=== PATIENT | female | born 1955 | race Caucasian/White ===

== ENCOUNTER → 2016-11-23 | Outpatient (CLI) | payer OTHER ==
[~2016-11-23] MED LIST: ADV250INH INH; ALBU17IN INH; ALEV220C2 PO; LEVO88TA3 PO; PARO20TA2 PO; PRAV20TA2 PO; PROBCAP4 PO; TUDO1AER2 INH; VITA100037 PO
--- NOTE | 2016-11-23 15:05 | REPMRS ---
Patient History The patient states she had a clinical breast exam in Patient is postmenopausal. Family history of breast cancer in paternal grandmother at age 50 or over. Benign excisional biopsy of the left breast, 1984. Digital Woman Screen Mammo: November 23, 2016 - Exam #: [id number] Bilateral CC and MLO view(s) were taken. Technologist: Cheri Do, Technologist Prior study comparison: October 24, 2013, digital woman screen mammo performed at [facility]. July 31, 2012, digital woman screen mammo performed at [facility]. FINDINGS: There are scattered fibroglandular densities. There has been no change in the appearance of the mammogram from the prior studies. There is a mild amount of residual fibroglandular tissue which is fairly symmetric. There is no interval development of dominant mass, architectural distortion, or clustered microcalcification suggestive of malignancy. ASSESSMENT: BI-RADS/ACR category 1 mammogram. Negative. Recommendation Routine screening mammogram in 1 year (for women over age 40). This mammogram was interpreted with the aid of an FDA-approved computer-aided dectection system. Electronically Signed By: Reyes Velasquez MD 11/23/16 1530
== END ==
LOC: M WHC 12:58
PROVIDERS: ATTEND Nurse Practitioner Women's Health
DX: Z12.31 Encounter for screening mammogram for malignant neoplasm of breast (principal); R14.0 Abdominal distension (gaseous); Z78.0 Asymptomatic menopausal state; Z80.3 Family history of malignant neoplasm of breast

== ENCOUNTER → 2016-11-23 | Outpatient (REF) | payer OTHER | LOC: M SFHCWAGY 13:17 | PROVIDERS: ATTEND Nurse Practitioner Women's Health | DX: Z01.419 Encounter for gynecological examination (general) (routine) without abnormal findings (principal); Z11.51 Encounter for screening for human papillomavirus (HPV) ==

== ENCOUNTER → 2016-11-30 | Outpatient (CLI) | payer OTHER ==
--- NOTE | 2016-11-30 10:35 | REP ---
Clinical: Pelvic pain and bloating . Technique: Transabdominal pelvic ultrasound followed by transvaginal examination for better evaluation of the endometrium and adnexa. Findings: Bladder is unremarkable and measures 10.5 x 9.1 x 5.0 cm . Anteverted uterus is deviated to the left hemipelvis and measures 7.3 x 2.4 x 4.6 cm with 2.1 cm anterior submucosal fibroid having mass effect on the endometrium. The endometrial complex measures 6.2 mm thickness. Subcentimeter Nabothian cysts noted in the lower uterine segment. Bilateral ovaries are normal in appearance and vascularity without evidence for torsion. Right ovary measures 1.4 x 1.0 x 1.4 cm. Left ovary measures 1.9 x 1.0 x 1.5 cm. No pelvic fluid or adnexal mass lesion. Impression: 1. A 2.1 centimeter anterior submucosal fibroid.
== END ==
LOC: M WHC 09:44
PROVIDERS: ATTEND Nurse Practitioner Women's Health
DX: R14.0 Abdominal distension (gaseous) (principal)

== ENCOUNTER → 2017-01-11 | Outpatient (REF) | payer OTHER ==
[~2017-01-11] MED LIST changes: -PARO20TA2 PO; +PARO20TA3 PO
== END ==
LOC: M LAB REF 12:35
PROVIDERS: ATTEND Physician Assistant
DX: J02.9 Acute pharyngitis, unspecified (principal)

== ENCOUNTER 2018-01-01 22:56 | Inpatient (IN) | payer OTHER, MEDICAID ==
[2018-01-02] MEDS: ONDANSETRON 4MG/2ML VIAL (J2405) IV (01:15)
[2018-01-02] MEDS: MORPHINE 4 MG/ML 1ML VIAL/SYRINGE (J2270) IV ×2 (01:20→02:00)
[2018-01-02 01:32] LABS: BASO # 0.1 10^3/uL (0.0-0.2); BASO % 0.2 % (0.0-1.0); HEMATOCRIT 42.6 % (36.0-47.0); HEMOGLOBIN 14.4 g/dl (12.0-15.5); IMMATURE GRANULOCYTE % 0.9 % (0-3.0); LYMPH # 1.4 10^3/uL (1.5-4.5); LYMPH % 6.5 % (24.0-44.0); MEAN CORPUSCULAR HEMOGLOBIN 29.6 pg (27.0-33.0); MEAN CORPUSCULAR HGB CONC 33.8 g/dl (32.0-36.5); MEAN CORPUSCULAR VOLUME 87.7 fl (80.0-96.0); MONO # 1.1 10^3/uL (0.0-0.8); MONO % 5.2 % (0.0-5.0); NEUTROPHILS % 87.2 % (36.0-66.0); PLATELET COUNT, AUTOMATED 181 10^3/uL (150-450); RED BLOOD COUNT 4.86 10^6/uL (4.00-5.40); RED CELL DISTRIBUTION WIDTH 13.5 % (11.5-14.5); WHITE BLOOD COUNT 21.8 10^3/uL (4.0-10.0)
[2018-01-02 01:35] LABS: KETONE, URINE AUTO RFX NEGATIVE (NEGATIVE); LEUKOCYTE ESTERASE UR AUTO RFX TRACE (NEGATIVE); MUCUS, URINE RFX SMALL (NEGATIVE); NITRITE, URINE AUTO RFX NEGATIVE (NEGATIVE); RBC, URINE AUTO RFX 8 /HPF (0-3); SPECIFIC GRAVITY UR AUTO RFX 1.031 (1.002-1.035); SQUAM EPITHELIAL CELL UR AURFX 2 /HPF (0-6); WBC, URINE AUTO RFX 6 /HPF (0-3)
[2018-01-02 01:59] LABS: ALBUMIN 3.4 GM/DL (3.2-5.2); ALBUMIN/GLOBULIN RATIO 0.97 (1.00-1.93); ALKALINE PHOSPHATASE 96 U/L (45-117); ALT/SGPT 19 U/L (12-78); ANION GAP 7 MEQ/L (8-16); AST/SGOT 15 U/L (7-37); BILIRUBIN,DIRECT 0.2 MG/DL (0.0-0.2); BILIRUBIN,TOTAL 0.6 MG/DL (0.2-1.0); BLOOD UREA NITROGEN 17 MG/DL (7-18); CALCIUM LEVEL 8.1 MG/DL (8.8-10.2); CARBON DIOXIDE LEVEL 28 MEQ/L (21-32); CHLORIDE LEVEL 104 MEQ/L (98-107); CK-MB VALUE MASS < 1.0 NG/ML (<3.6); CPK CREATINE PHOSPHOKINASE 78 U/L (26-192); CREATININE FOR GFR 0.93 MG/DL (0.55-1.30); GLOMERULAR FILTRATION RATE > 60.0 (>45); GLUCOSE, FASTING 137 MG/DL (70-100); LIPASE 148 U/L (73-393); MB/CK RELATIVE INDEX 1.28 (< OR =4); POTASSIUM SERUM 3.6 MEQ/L (3.5-5.1); SODIUM LEVEL 139 MEQ/L (136-145); TOTAL PROTEIN 6.9 GM/DL (6.4-8.2); TROPONIN I < 0.02 NG/ML (< 0.10)
[2018-01-02] MEDS ORDERED: ISOVUE-370 76% 100ML VIAL (Q9967) As Ordered (02:13)
[2018-01-02] MEDS: HYDROmorphone HCL 1 MG/ML SYRINGE (J1170) IV ×3 (03:02→07:17)
[2018-01-02] MEDS ORDERED: FLUTICASONE PROP 0.05% NASAL SPRAY 16 GM (FLONASE) (04:30)
[2018-01-02] MEDS: LevoFLOXacin IV 750 MG in APPROPRIATE DILUENT 1 EA IV (04:47)
[2018-01-02] MEDS ORDERED: NICOTINE POLACRILEX 2 MG GUM PO (05:45)
[2018-01-02] MEDS: HEPARIN SOD (PORCINE) 5000 UNITS/ML VIAL SC ×3 (06:39→21:13)
[2018-01-02] MEDS: LEVOTHYROXINE 88MCG TABLET (0.088 MG) PO (06:39)
[2018-01-02] MEDS: NS 1,000 ML IV ×2 (06:39→17:36)
[2018-01-02] MEDS: cefTRIAXone SOD 1 GM in D5W MINI-BAG PLUS 50 ML IV (06:40)
[2018-01-02] MEDS: ACETAMINOPHEN 650MG ER TAB (TYLENOL ARTHRITIS) PO (06:56)
[2018-01-02] MEDS: AZITHROMYCIN INJ 500 MG, VIAL MATE ADAPTER 1 EACH in D5W 250 ML IV (07:16)
[2018-01-02] MEDS: PARoxetine 10MG TABLET PO (09:03)
[2018-01-02] MEDS: ASPIRIN 81 MG ENTERIC TAB PO (09:03)
[2018-01-02] MEDS: PERCOCET 5MG/325MG TAB PO ×2 (11:28→17:36)
[2018-01-02] MEDS: ALBUTEROL SULFATE 2.5 MG/0.5 ML INH NEB SOLN INH (18:24)
[2018-01-02] MEDS: SYMBICORT 160/4.5MCG INHALER 6GM INH (20:17)
[2018-01-02] MEDS: ATORVASTATIN 20 MG TAB PO (21:13)
[2018-01-03] MEDS: NS 1,000 ML IV ×2 (00:25→10:25)
[2018-01-03] MEDS: cefTRIAXone SOD 1 GM in D5W MINI-BAG PLUS 50 ML IV (04:11)
[2018-01-03] MEDS: PERCOCET 5MG/325MG TAB PO ×2 (04:12→15:12)
[2018-01-03] MEDS: LEVOTHYROXINE 88MCG TABLET (0.088 MG) PO (05:48)
[2018-01-03] MEDS: AZITHROMYCIN INJ 500 MG, VIAL MATE ADAPTER 1 EACH in D5W 250 ML IV (05:49)
[2018-01-03] MEDS: HEPARIN SOD (PORCINE) 5000 UNITS/ML VIAL SC ×3 (05:49→21:30)
[2018-01-03 06:18] LABS: BASO % 0.2 % (0.0-1.0); EOS # 0.1 10^3/uL (0.0-0.50); EOS % 0.6 % (0.0-3.0); HEMATOCRIT 35.3 % (36.0-47.0); IMMATURE GRANULOCYTE % 1.1 % (0-3.0); LYMPH # 1.2 10^3/uL (1.5-4.5); LYMPH % 9.2 % (24.0-44.0); MEAN CORPUSCULAR HEMOGLOBIN 29.7 pg (27.0-33.0); MEAN CORPUSCULAR HGB CONC 33.4 g/dl (32.0-36.5); MEAN CORPUSCULAR VOLUME 88.9 fl (80.0-96.0); MONO # 0.7 10^3/uL (0.0-0.8); MONO % 5.6 % (0.0-5.0); NEUTROPHILS # 10.9 10^3/uL (1.8-7.7); NEUTROPHILS % 83.3 % (36.0-66.0); PLATELET COUNT, AUTOMATED 156 10^3/uL (150-450); RED BLOOD COUNT 3.97 10^6/uL (4.00-5.40); RED CELL DISTRIBUTION WIDTH 13.5 % (11.5-14.5); WHITE BLOOD COUNT 13.1 10^3/uL (4.0-10.0)
[2018-01-03 06:23] LABS: HEMOGLOBIN 11.8 g/dl (12.0-15.5)
[2018-01-03 06:47] LABS: ALBUMIN 2.5 GM/DL (3.2-5.2); ALBUMIN/GLOBULIN RATIO 0.64 (1.00-1.93); ALKALINE PHOSPHATASE 83 U/L (45-117); ALT/SGPT 11 U/L (12-78); ANION GAP 6 MEQ/L (8-16); AST/SGOT 9 U/L (7-37); BILIRUBIN,TOTAL 0.2 MG/DL (0.2-1.0); BLOOD UREA NITROGEN 17 MG/DL (7-18); CALCIUM LEVEL 7.3 MG/DL (8.8-10.2); CARBON DIOXIDE LEVEL 26 MEQ/L (21-32); CHLORIDE LEVEL 107 MEQ/L (98-107); CREATININE FOR GFR 0.89 MG/DL (0.55-1.30); GLOMERULAR FILTRATION RATE > 60.0 (>45); GLUCOSE, FASTING 166 MG/DL (70-100); POTASSIUM SERUM 3.7 MEQ/L (3.5-5.1); SODIUM LEVEL 139 MEQ/L (136-145); TOTAL PROTEIN 6.4 GM/DL (6.4-8.2)
[2018-01-03] MEDS: TIOTROPIUM INHALER/CAPSULE (SPIRIVA) INH (08:24)
[2018-01-03] MEDS: SYMBICORT 160/4.5MCG INHALER 6GM INH ×2 (08:24→21:49)
[2018-01-03] MEDS ORDERED: ISOVUE-370 76% 100ML VIAL (Q9967) As Ordered (08:54)
[2018-01-03] MEDS: ASPIRIN 81 MG ENTERIC TAB PO (09:23)
[2018-01-03] MEDS: PARoxetine 10MG TABLET PO (09:23)
[2018-01-03] MEDS: BISACODYL 5 MG TAB PO (15:07)
[2018-01-03] MEDS: ATORVASTATIN 20 MG TAB PO (21:30)
[2018-01-04] MEDS: PERCOCET 5MG/325MG TAB PO ×4 (01:32→21:58)
[2018-01-04] MEDS: NS 1,000 ML IV ×2 (03:22→15:22)
[2018-01-04] MEDS: HEPARIN SOD (PORCINE) 5000 UNITS/ML VIAL SC ×3 (05:59→20:08)
[2018-01-04] MEDS: cefTRIAXone SOD 1 GM in D5W MINI-BAG PLUS 50 ML IV (05:59)
[2018-01-04] MEDS: LEVOTHYROXINE 88MCG TABLET (0.088 MG) PO (05:59)
[2018-01-04 06:22] LABS: BASO % 0.4 % (0.0-1.0); EOS # 0.1 10^3/uL (0.0-0.50); EOS % 1.6 % (0.0-3.0); HEMOGLOBIN 10.9 g/dl (12.0-15.5); IMMATURE GRANULOCYTE % 0.6 % (0-3.0); LYMPH # 1.3 10^3/uL (1.5-4.5); LYMPH % 16.9 % (24.0-44.0); MEAN CORPUSCULAR HEMOGLOBIN 29.9 pg (27.0-33.0); MEAN CORPUSCULAR VOLUME 90.4 fl (80.0-96.0); MONO # 0.6 10^3/uL (0.0-0.8); MONO % 7.3 % (0.0-5.0); NEUTROPHILS # 5.7 10^3/uL (1.8-7.7); NEUTROPHILS % 73.2 % (36.0-66.0); PLATELET COUNT, AUTOMATED 187 10^3/uL (150-450); RED BLOOD COUNT 3.65 10^6/uL (4.00-5.40); RED CELL DISTRIBUTION WIDTH 13.8 % (11.5-14.5); WHITE BLOOD COUNT 7.7 10^3/uL (4.0-10.0)
[2018-01-04 06:31] LABS: ALBUMIN 2.3 GM/DL (3.2-5.2); ALBUMIN/GLOBULIN RATIO 0.62 (1.00-1.93); ALKALINE PHOSPHATASE 78 U/L (45-117); ALT/SGPT 18 U/L (12-78); ANION GAP 4 MEQ/L (8-16); AST/SGOT 13 U/L (7-37); BILIRUBIN,TOTAL 0.2 MG/DL (0.2-1.0); BLOOD UREA NITROGEN 11 MG/DL (7-18); CALCIUM LEVEL 7.3 MG/DL (8.8-10.2); CARBON DIOXIDE LEVEL 27 MEQ/L (21-32); CHLORIDE LEVEL 113 MEQ/L (98-107); CREATININE FOR GFR 0.74 MG/DL (0.55-1.30); GLOMERULAR FILTRATION RATE > 60.0 (>45); GLUCOSE, FASTING 111 MG/DL (70-100); POTASSIUM SERUM 3.6 MEQ/L (3.5-5.1); SODIUM LEVEL 144 MEQ/L (136-145)
[2018-01-04] MEDS: AZITHROMYCIN INJ 500 MG, VIAL MATE ADAPTER 1 EACH in D5W 250 ML IV (06:42)
[2018-01-04] MEDS: SYMBICORT 160/4.5MCG INHALER 6GM INH ×2 (08:57→20:20)
[2018-01-04] MEDS: TIOTROPIUM INHALER/CAPSULE (SPIRIVA) INH (08:57)
[2018-01-04] MEDS: PARoxetine 10MG TABLET PO (08:59)
[2018-01-04] MEDS: ASPIRIN 81 MG ENTERIC TAB PO (08:59)
[2018-01-04] MEDS: BISACODYL 5 MG TAB PO (15:24)
[2018-01-04] MEDS: ATORVASTATIN 20 MG TAB PO (20:08)
[2018-01-04] MEDS ORDERED: MOM 30ML SUSPENSION UDC PO (22:45)
[2018-01-04] MEDS: MOM 30ML SUSPENSION UDC PO (22:52)
[2018-01-05] MEDS: NS 1,000 ML IV ×2 (00:42→02:25)
[2018-01-05] MEDS: LEVOTHYROXINE 88MCG TABLET (0.088 MG) PO (05:27)
[2018-01-05] MEDS: MOXIFLOXACIN 400 MG TAB PO (05:27)
[2018-01-05] MEDS: HEPARIN SOD (PORCINE) 5000 UNITS/ML VIAL SC (05:29)
[2018-01-05 05:53] LABS: BASO % 0.6 % (0.0-1.0); EOS # 0.2 10^3/uL (0.0-0.50); EOS % 2.2 % (0.0-3.0); HEMATOCRIT 36.5 % (36.0-47.0); IMMATURE GRANULOCYTE % 0.8 % (0-3.0); LYMPH # 1.5 10^3/uL (1.5-4.5); MEAN CORPUSCULAR HEMOGLOBIN 29.4 pg (27.0-33.0); MEAN CORPUSCULAR HGB CONC 32.9 g/dl (32.0-36.5); MEAN CORPUSCULAR VOLUME 89.5 fl (80.0-96.0); MONO # 0.6 10^3/uL (0.0-0.8); MONO % 8.1 % (0.0-5.0); NEUTROPHILS # 4.8 10^3/uL (1.8-7.7); NEUTROPHILS % 67.3 % (36.0-66.0); PLATELET COUNT, AUTOMATED 239 10^3/uL (150-450); RED BLOOD COUNT 4.08 10^6/uL (4.00-5.40); RED CELL DISTRIBUTION WIDTH 13.9 % (11.5-14.5); WHITE BLOOD COUNT 7.1 10^3/uL (4.0-10.0)
[2018-01-05 06:27] LABS: ALBUMIN 2.6 GM/DL (3.2-5.2); ALBUMIN/GLOBULIN RATIO 0.62 (1.00-1.93); ALKALINE PHOSPHATASE 98 U/L (45-117); ALT/SGPT 26 U/L (12-78); ANION GAP 7 MEQ/L (8-16); AST/SGOT 18 U/L (7-37); BILIRUBIN,TOTAL 0.2 MG/DL (0.2-1.0); BLOOD UREA NITROGEN 7 MG/DL (7-18); CALCIUM LEVEL 7.7 MG/DL (8.8-10.2); CARBON DIOXIDE LEVEL 27 MEQ/L (21-32); CHLORIDE LEVEL 111 MEQ/L (98-107); CREATININE FOR GFR 0.72 MG/DL (0.55-1.30); GLOMERULAR FILTRATION RATE > 60.0 (>45); GLUCOSE, FASTING 94 MG/DL (70-100); POTASSIUM SERUM 3.9 MEQ/L (3.5-5.1); SODIUM LEVEL 145 MEQ/L (136-145); TOTAL PROTEIN 6.8 GM/DL (6.4-8.2)
[2018-01-05] MEDS: TIOTROPIUM INHALER/CAPSULE (SPIRIVA) INH (07:18)
[2018-01-05] MEDS: SYMBICORT 160/4.5MCG INHALER 6GM INH (07:18)
[2018-01-05] MEDS: ASPIRIN 81 MG ENTERIC TAB PO (08:32)
[2018-01-05] MEDS: PARoxetine 10MG TABLET PO (08:32)
== END 2018-01-05 09:37 | disposition home or self-care (01) | DRG 720 ==
LOC: M ED 22:56 → M ED INP 01-02 04:25 → M MSPAV 01-02 05:22
DX: A41.9 Sepsis, unspecified organism (principal); J18.9 Pneumonia, unspecified organism; J44.0 Chronic obstructive pulmonary disease with (acute) lower respiratory infection; F17.210 Nicotine dependence, cigarettes, uncomplicated; I10 Essential (primary) hypertension; E03.9 Hypothyroidism, unspecified; F32.9 Major depressive disorder, single episode, unspecified; Z79.82 Long term (current) use of aspirin; Z79.899 Other long term (current) drug therapy; Z88.2 Allergy status to sulfonamides

== ENCOUNTER → 2018-02-14 | Outpatient (CLI) | payer OTHER | LOC: M WHC 11:04 | DX: Z12.31 Encounter for screening mammogram for malignant neoplasm of breast (principal) | CPT/HCPCS: 77067 ==

== ENCOUNTER → 2018-02-14 | Outpatient (REF) | payer OTHER ==
[2018-02-16 14:14] LABS: HPV HYBRID CAPTURE II Positive (Negative)
== END ==
LOC: M SFHCWAGY 11:12
DX: Z12.4 Encounter for screening for malignant neoplasm of cervix (principal)

== ENCOUNTER → 2018-02-26 | Outpatient (CLI) | payer OTHER | LOC: M WUC 12:12 | DX: J44.0 Chronic obstructive pulmonary disease with (acute) lower respiratory infection (principal) | CPT/HCPCS: 71046 ==

== ENCOUNTER → 2018-04-02 | Outpatient (REF) | payer OTHER | LOC: M SFHCWAGY 11:35 | DX: R87.810 Cervical high risk human papillomavirus (HPV) DNA test positive (principal); R87.612 Low grade squamous intraepithelial lesion on cytologic smear of cervix (LGSIL) ==

== ENCOUNTER → 2018-07-16 | Outpatient (CLI) | payer OTHER | LOC: M WUC 10:35 | DX: R05 Cough (principal) | CPT/HCPCS: 71046 ==

== ENCOUNTER → 2018-10-11 | Outpatient (REF) | payer OTHER ==
[~2018-10-11] MED LIST changes: +ALBU83IN; +ALBU83IN INH; +ALEV220T26 PO; +ASPI81TAEC PO; +ATOR80TA59; +ATOR80TA59 PO; +BREO1INH; +BREO1INH INH; +FLON1SPR; +FLUTISP; +HYDR25TAB PO; +INCR1INH INH; +LEVA750T7 PO; +OXYC1TAB23 PO; +PARO10TA3 PO; +TYLE650T35 PO; -VITA100037 PO; +VITA100067 PO
[2018-10-13 15:39] LABS: HPV HYBRID CAPTURE II Positive (Negative)
== END ==
LOC: M SFHCWAGY 13:27
PROVIDERS: ATTEND Nurse Practitioner Women's Health
DX: R87.810 Cervical high risk human papillomavirus (HPV) DNA test positive (principal); R87.612 Low grade squamous intraepithelial lesion on cytologic smear of cervix (LGSIL)

== ENCOUNTER → 2018-11-16 | Outpatient (REF) | payer OTHER | LOC: M SFHCWAGY 11:26 | PROVIDERS: ATTEND Family Medicine | DX: R87.619 Unspecified abnormal cytological findings in specimens from cervix uteri (principal) ==

== ENCOUNTER → 2019-01-08 | Outpatient (CLI) | payer OTHER ==
--- NOTE | 2019-01-08 11:09 | PFTRPT ---
Site: [facility], [address] [place], [place], [address] ID: [id number] Name: CARL GUNDERSNO Visit Date: 01/08/2019 Second ID: [id number] Referring Doctor: Afsaneh Holland Reviewing Doctor: Jeffrey Luna MD Spice Fumigator: Qiana WADDELL RRT Age: 63 : 1955 Sex: Female Race: Height: 62.00 Inches Weight: 177.00 Lbs BSA: 1.81 Order IDs: [id number] Requested Test(s): <RESP-PFT.DLCO> Diagnosis: J44.9 test appear to be valid, although the ATS standard for "end of test" was not met. IVC is less than 85% of VC. DLCO may be underestimated. Pt was given four puffs of albuterol for postbronchodilator. Review Status: Not Reviewed Pre-Bronch Post-Bronch Pred Actual %Pred Actual %Chng SPIROMETRY FVC (L) 2.95 1.59 53 1.62 1 FEV1 (L) 2.26 0.73 32 0.71 -2 FEV1/FVC (%) 77 46 59 44 -3 FEF 25% (L/sec) 4.67 0.69 14 0.62 -10 FEF 50% (L/sec) 3.51 0.29 8 0.27 -5 FEF 75% (L/sec) 1.12 0.14 12 0.15 9 FEF 25-75% (L/sec) 2.06 0.25 11 0.25 2 FEF Max (L/sec) 5.75 2.74 47 2.77 1 FIVC (L) 1.59 1.58 FIF 50% (L/sec) 3.44 3.54 102 2.96 -16 FIF Max (L/sec) 3.54 3.03 -14 MVV (L/min) 85 34 40 Expiratory Time (sec) 9.23 7.64 -17 Back Extrap Vol (L) 0.04 0.08 79 Time To FEFmax (sec) 0.063 0.081 27 LUNG VOLUMES SVC (L) 2.78 2.01 72 IC (L) 2.06 1.26 61 ERV (L) 0.72 0.74 103 TGV (L) 2.69 3.42 127 RV (Pleth) (L) 1.97 2.68 135 TLC (Pleth) (L) 4.75 4.68 98 RV/TLC (Pleth) (%) 41 57 139 DIFFUSION DLCOunc (ml/min/mmHg) 20.36 6.96 34 DLCOcor (ml/min/mmHg) 20.36 6.69 32 DL/VA (ml/min/mmHg/L) 4.29 2.52 58 VA (L) 4.75 2.66 55 BHT (sec) 11.51 IVC (L) 1.49 TLC (SB) (L) 2.81 AIRWAYS RESISTANCE Raw (cmH2O/L/s) 1.86 2.80 150 Gaw (L/s/cmH2O) 1.03 0.36 34 sRaw (cmH2O*s) 4.76 11.15 234 sGaw (1/cmH2O*s) 0.20 0.09 44 BLOOD GASES Hgb (gm/dL) 14.8
== END ==
LOC: M CARPUL 10:21
PROVIDERS: ATTEND Nurse Practitioner Adult Health
DX: J44.9 Chronic obstructive pulmonary disease, unspecified (principal)

== ENCOUNTER → 2019-01-10 | Outpatient (CLI) | payer OTHER ==
--- NOTE | 2019-01-11 04:49 | REP ---
Clinical: Lung screening. History of nicotine dependence. Comparison: 01/03/2018 Technique: Axial low-dose noncontrast images from the thoracic inlet to the upper abdomen using lung screening technique. Findings: The lung joe are well-aerated. Very minimal scattered scarring noted. No consolidation, significant nodule or mass lesion is appreciated. No pleural effusion/reaction or pneumothorax. Tracheobronchial tree is patent. Mediastinum demonstrates mild atherosclerotic changes of the coronary arteries without cardiomegaly. Impression: Lung-RADS category I. No nodule or suspicious abnormality. Management recommendations include annual low-dose CT evaluation. Electronically Signed by Carlos Cartagena MD 01/11/2019 04:41 A
== END ==
LOC: M RAD 10:36
PROVIDERS: ATTEND Nurse Practitioner Adult Health
DX: F17.218 Nicotine dependence, cigarettes, with other nicotine-induced disorders (principal)

== ENCOUNTER → 2019-03-12 | Outpatient (CLI) | payer OTHER ==
[~2019-03-12] MED LIST changes: -TUDO1AER2 INH; +TUDO1AER3 INH
--- NOTE | 2019-03-12 11:49 | REPMRS ---
Patient History The patient states she had a clinical breast exam in 03/2019. Patient is postmenopausal. Family history of breast cancer at age 50 or over in paternal grandmother, ovarian cancer at age 19 in sister. Benign excisional biopsy of the left breast, 1985. 3D TOMOSYNTHESIS WAS PERFORMED. The [facility] lifetime risk for breast cancer is 6.2%. Digital Woman Screen Mammo: March 12, 2019 - Exam #: [id number] Bilateral CC and MLO view(s) were taken. Technologist: Tricia Hoang Technologist Prior study comparison: February 14, 2018, bilateral digital woman screen mammo performed at [facility]. November 23, 2016, digital woman screen mammo performed at [facility]. FINDINGS: There are scattered fibroglandular densities. There has been no change in the appearance of the mammogram from the prior studies. There is a mild amount of residual fibroglandular tissue which is fairly symmetric. There is no interval development of dominant mass, architectural distortion, or clustered microcalcification suggestive of malignancy. Assessment: BI-RADS/ACR category 1 mammogram. Negative Mammogram. Recommendation Routine screening mammogram in 1 year (for women over age 40). This mammogram was interpreted with the aid of an FDA-approved computer-aided dectection system. Electronically Signed By: Reyes Velasquez MD 03/12/19 [id number]
== END ==
LOC: M WHC 10:49
PROVIDERS: ATTEND Nurse Practitioner Women's Health
DX: Z12.31 Encounter for screening mammogram for malignant neoplasm of breast (principal); Z78.0 Asymptomatic menopausal state; Z80.41 Family history of malignant neoplasm of ovary

== ENCOUNTER → 2019-07-23 | Outpatient (CLI) | payer OTHER ==
--- NOTE | 2019-07-23 22:04 | REP ---
CHEST, TWO VIEWS: Two views of the chest are performed. COMPARISON: 07/16/2018. There is bibasilar fibrotic change which is stable. No definite superimposed acute infiltrate is seen. The heart is normal in size and there is calcification of the thoracic aorta. The mediastinal silhouette is unchanged. There are degenerative changes of the spine. IMPRESSION: Stable chronic findings without evidence of superimposed acute infiltrate. Electronically Signed by Reyes Velasquez MD 07/24/2019 03:46 P
== END ==
LOC: M RAD 17:16
PROVIDERS: ATTEND Nurse Practitioner Adult Health
DX: J20.9 Acute bronchitis, unspecified (principal)

== ENCOUNTER 2019-09-11 17:56 | Emergency (ER) | payer OTHER ==
[~2019-09-11] VITALS: Ht 157.5 cm; Wt 82.5 kg
--- NOTE | 2019-09-11 18:58 | REP ---
CHEST, TWO VIEWS: Two views chest performed and compared to prior study of 07/23/2019. There is mild bibasilar fibrotic change with no acute infiltrate or pulmonary edema. Heart is normal in size. There is calcification of the thoracic aorta. The mediastinal silhouette is unchanged. Degenerative changes of the spine are again noted. IMPRESSION: Stable chronic findings without evidence of acute infiltrate. Electronically Signed by Reyes Velasquez MD 09/11/2019 08:07 P
[2019-09-11 19:06] LABS: INFLUENZA A AMPLIFICATION NEGATIVE (NEGATIVE); INFLUENZA B AMPLIFICATION NEGATIVE (NEGATIVE)
[2019-09-11] MEDS ORDERED: IBUP-1022 PO (20:24)
[2019-09-11 20:47] LABS: BASO % 0.3 % (0.0-1.0); EOS # 0.1 10^3/uL (0.0-0.5); HEMATOCRIT 43.6 % (36.0-47.0); HEMOGLOBIN 13.8 g/dl (12.0-15.5); LYMPH # 1.7 10^3/uL (1.5-5.0); LYMPH % 14.4 % (24.0-44.0); MEAN CORPUSCULAR HEMOGLOBIN 28.8 pg (27.0-33.0); MEAN CORPUSCULAR HGB CONC 31.7 g/dl (32.0-36.5); MONO # 0.9 10^3/uL (0.0-0.8); MONO % 7.8 % (0.0-5.0); NEUTROPHILS # 8.8 10^3/uL (1.5-8.5); NEUTROPHILS % 76.2 % (36.0-66.0); PLATELET COUNT, AUTOMATED 177 10^3/uL (150-450); RED BLOOD COUNT 4.79 10^6/uL (4.00-5.40); WHITE BLOOD COUNT 11.6 10^3/uL (4.0-10.0)
[2019-09-11 20:53] LABS: APPEARANCE, URINE CLEAR (CLEAR); BACTERIA, URINE AUTO NEGATIVE (NEGATIVE); BILIRUBIN, URINE AUTO NEGATIVE (NEGATIVE); BLOOD, URINE BLOOD NEGATIVE (NEGATIVE); COLOR, URINE YELLOW (YELLOW); GLUCOSE, URINE (UA) AUTO NEGATIVE (NEGATIVE); KETONE, URINE AUTO TRACE mg/dL (NEGATIVE); LEUKOCYTE ESTERASE, URINE AUTO NEGATIVE (NEGATIVE); MUCUS, URINE SMALL (NEGATIVE); NITRITE, URINE AUTO NEGATIVE (NEGATIVE); PROTEIN, URINE AUTO NEGATIVE (NEGATIVE); RBC, URINE AUTO 5 /HPF (0-3); SPECIFIC GRAVITY URINE AUTO 1.023 (1.002-1.035); SQUAMOUS EPITHELIAL CELL UR AU 0 /HPF (0-6); WBC, URINE AUTO 1 /HPF (0-3)
[2019-09-11 21:07] LABS: MONO SCRN NEGATIVE (NEGATIVE)
[2019-09-11] MEDS ORDERED: AZIT-12 PO (21:41)
[2019-09-11 21:44] VITALS: BP 116/56
[2019-09-11] MEDS ORDERED: AZITHROMYCIN 250 MG TAB PO ONE (21:45)
== END 2019-09-11 21:51 | disposition home or self-care (01) ==
LOC: M ED 17:56
DX: J01.00 Acute maxillary sinusitis, unspecified (principal); Z88.2 Allergy status to sulfonamides; Z79.899 Other long term (current) drug therapy

== ENCOUNTER → 2019-11-14 | Outpatient (REF) | payer OTHER ==
[~2019-11-14] MED LIST changes: +AZIT-12 PO; +IBUP-1022 PO
== END ==
LOC: M SFHCWAGY 13:36
PROVIDERS: ATTEND Nurse Practitioner Women's Health
DX: Z12.4 Encounter for screening for malignant neoplasm of cervix (principal)

== ENCOUNTER → 2020-03-10 | Outpatient (CLI) | payer MEDICARE, MEDICAID ==
[~2020-03-10] MED LIST changes: +ACET650T61 PO; -TYLE650T35 PO
--- NOTE | 2020-03-11 07:28 | REP ---
REASON: Tobacco abuse. COMPARISON: 01/03/2018 and 01/10/2019. Latest prior also CT screening exam. As per the protocol, only lung window images were sent to the read station for interpretation. No new abnormal nodules, masses, or opacities have developed. Grossly, the imaged upper abdomen and imaged osseous structures are unchanged. Grossly, the mediastinum and pulmonary chance are unchanged. IMPRESSION: Stable CT examination of the chest. Lung-RADS category 2. Year[address] screening recommended. Electronically Signed by Calderon Madison DO 03/11/2020 09:32 A
== END ==
LOC: M RAD 13:56
PROVIDERS: ATTEND Nurse Practitioner Adult Health
DX: F17.218 Nicotine dependence, cigarettes, with other nicotine-induced disorders (principal)

== ENCOUNTER 2020-09-04 12:02 | Inpatient (IN) | payer MEDICARE, MEDICAID ==
[~2020-09-04] VITALS: Ht 157.5 cm; Wt 77.3 kg
[2020-09-04] MEDS ORDERED: ACETAMINOPHEN 325 MG TAB PO ONE (12:30)
[2020-09-04 12:42] LABS: BASO % 0.3 % (0.0-1.0); HEMOGLOBIN 13.2 g/dl (12.0-15.5); LYMPH # 0.7 10^3/uL (1.5-5.0); LYMPH % 19.2 % (24.0-44.0); MEAN CORPUSCULAR HEMOGLOBIN 27.9 pg (27.0-33.0); MEAN CORPUSCULAR HGB CONC 31.4 g/dl (32.0-36.5); MEAN CORPUSCULAR VOLUME 88.8 fl (80.0-96.0); MONO # 0.2 10^3/uL (0.0-0.8); MONO % 6.3 % (0.0-5.0); NEUTROPHILS # 2.7 10^3/uL (1.5-8.5); NEUTROPHILS % 73.7 % (36.0-66.0); PLATELET COUNT, AUTOMATED 146 10^3/uL (150-450); RED BLOOD COUNT 4.73 10^6/uL (4.00-5.40); WHITE BLOOD COUNT 3.6 10^3/uL (4.0-10.0)
[2020-09-04 12:51] VITALS: O2SAT 87
[2020-09-04 13:00] LABS: INR 0.92; PROTHROMBIN TIME 12.5 SECONDS (12.5-14.3)
[2020-09-04 13:01] LABS: PARTIAL THROMBOPLASTIN TIME 30.7 SECONDS (24.2-38.5)
[2020-09-04 13:04] LABS: D-DIMER QUANT 678.84 ng/ml (<500)
[2020-09-04 13:27] LABS: RSV AMPLIFICATION NEGATIVE (NEGATIVE)
[2020-09-04] MEDS ORDERED: ACETAMINOPHEN TAB 650MG DOSE (2X325MG) PO ONE (13:30)
[2020-09-04] MEDS ORDERED: IBUPROFEN 400 MG TAB PO ONE (13:45)
[2020-09-04 13:53] LABS: ALT/SGPT 24 U/L (12-78); BILIRUBIN,TOTAL 0.3 MG/DL (0.2-1.0); BLOOD UREA NITROGEN 11 MG/DL (7-18); C REACTIVE PROTEIN QUANTITATIV 2.28 MG/DL (0.00-0.30); CALCIUM LEVEL 6.9 MG/DL (8.8-10.2); CARBON DIOXIDE LEVEL 34 MEQ/L (21-32); CHLORIDE LEVEL 101 MEQ/L (98-107); CPK CREATINE PHOSPHOKINASE 176 U/L (26-192); FERRITIN 384 NG/ML (8-252); GLOMERULAR FILTRATION RATE > 60.0 (>45); GLUCOSE, FASTING 125 MG/DL (70-100); LDH LACTATE DEHYDROGENASE 250 U/L (84-246); MAGNESIUM LEVEL 2.3 MG/DL (1.8-2.4); MB/CK RELATIVE INDEX 0.57 (< OR =4); POTASSIUM SERUM 2.9 MEQ/L (3.5-5.1); SODIUM LEVEL 140 MEQ/L (136-145); TOTAL PROTEIN 6.2 GM/DL (6.4-8.2); TROPONIN I < 0.02 NG/ML (< 0.10)
[2020-09-04] MEDS ORDERED: POTASSIUM CHLORIDE 10 MEQ SR TABLET PO ONE ×2 (14:15→16:45)
--- NOTE | 2020-09-04 14:16 | REP ---
INDICATION: Coronavirus workup COMPARISON: 09/11/2019 TECHNIQUE: Portable AP view of the chest FINDINGS: The mediastinum and cardiac silhouette are stable and within normal limits for portable technique. The lung joe demonstrate diffuse chronic interstitial changes.. Blunting of the left costophrenic angle may represent chronic change versus small pleural effusion. No focal consolidation. No pneumothorax. Skeletal structures are intact. IMPRESSION: Chronic changes similar to prior examination. No focal consolidation. Subtle blunting to the left costophrenic angle suggests small acute versus chronic pleural reaction. <Electronically signed by Carlos Cartagena > 09/04/20 [id number]
[2020-09-04] MEDS ORDERED: NICOTINE 14 MG/24 HR TRANSDERMAL TD PRN (17:00)
[2020-09-04] MEDS ORDERED: LEVO100T5 PO (17:32)
[2020-09-04] MEDS ORDERED: ACET500T15 PO (17:32)
[2020-09-04] MEDS ORDERED: VENTAER INH (17:32)
[2020-09-04] MEDS ORDERED: FAMO40TA3 PO (17:32)
[2020-09-04] MEDS ORDERED: CETI-24 PO (17:32)
--- NOTE | 2020-09-04 17:42 | HPEPDOC ---
[facility] Medical History & Physical Date of Admission Sep 04, 2020 Date of Service: Sep 04, 2020 History and Physical Chief complaint: Presented to the ER with complaints of fever History of present illness: Patient is a 64 year old female who has been living with her fimonika who tested positive for COVID on 08/25. Patient reported that she has been quarantined at home, however, continued to experience persistent fevers and body aches. Patient was noted to have chills as well. Patient denies any shortness of breath. Reports a mild cough with green sputum. Denies any chest pain or palpitations. Patient has experience some nausea without vomiting. Denies any abdominal pain. Reports some diarrhea, however, her last bowel movement was this morning, which was formed. Patient denies any urinary discomfort. Reports her appetite is fairly normal without any changes in her weight. Past Medical History: COPD Active Smoker / Nicotine dependence Hypothyroidism Past Surgical History: Hernia repair 2 2 Tubal ligation Allergies: See below Medications: See below Family History: - Brother and sister with history of lung cancer Social History: - Denies the use of alcohol or illicit drugs; patient is an active smoker of 50 years at less than 1ppd - Denies recent travel; reports that she has an exposure to her fianc was positive on 08/25 - Lives with earnest - Occupation; retired [employer] Review of Systems: 10 point review of systems complete, all negative otherwise stated in HPI Physical exam: - Vitals: BP [101/56], HR [75], RR [19], Sat [96%RA], Temp [99.0F] - General: Lying in bed, Speaking in full sentences, AAOx3 - HEENT: NC, AT, PERRLA, EOMI - CVS: RRR, +S1S2 - Lungs: Fair air entry bilaterally, No appreciable wheezing / rales / rhonchi - Abdomen: Soft, Non-distended, Non-tender - Extremities: No lower extremity edema, No calf tenderness - Neuro: No focal motor or sensory deficit - Skin: No visible rashes Labs: See below Imaging: CXR 09/04/20: Chronic changes similar to prior examination. No focal consolidation. Subtle blunting to the left costophrenic angle suggests small acute versus chronic pleural reaction. EKG: See below Assessment and Plan: Fever / Dyspnea - likely 2/2 COVID 19 infection - Patient currently reports fevers; denies any significant shortness of breath, but reports a productive cough - Hemodynamically stable - Saturating well on room air - Lab work does not reveal any significant elevation of her inflammatory markers - Will trend inflammatory markers - Imaging noted - Will start Prednisone - Will c/w inhaled therapy as ordered - Will start incentive spirometry Hypokalemia - possibly 2/2 diarrhea - s/p Kdur 40 in the ER - Will supplement with additional PO Chronic COPD - See above Active Smoker / Nicotine dependence - Advised smoking cessation - Will start Nicotine patch HTN - BP well controlled - c/w HCTZ with hold parameters DLP - c/w ASA and Atorvastatin Hypothyroidism - c/w Levothyroxine Depression - c/w Paroxetine GERD - c/w Famotidine DVT prophylaxis - Will start Lovenox Vital Signs Vital Signs Date Time Temp Pulse Resp B/P (MAP) Pulse Ox O2 Delivery O2 Flow Rate FiO2 09/04/20 16:33 81 09/04/20 15:48 89 09/04/20 14:48 Room Air 09/04/20 14:47 99.0 09/04/20 14:45 101/56 (71) 09/04/20 13:17 2.0 09/04/20 12:17 19 Laboratory Data Labs 24H Laboratory Tests 2 09/04/20 12:00: Immature Granulocyte % (Auto) 0.5, Neutrophils (%) (Auto) 73.7H, Lymphocytes (%) (Auto) 19.2L, Monocytes (%) (Auto) 6.3H, Eosinophils (%) (Auto) 0.0, Basophils (%) (Auto) 0.3, Neutrophils # (Auto) 2.7, Lymphocytes # (Auto) 0.7L, Monocytes # (Auto) 0.2, Eosinophils # (Auto) 0.0, Basophils # (Auto) 0.0, Nucleated Red Blood Cells % (auto) 0.0, Prothrombin Time 12.5, Prothromb Time International R atio 0.92, Activated Partial Thromboplast Time 30.7, Fibrinogen 572H, D-Dimer, Quantitative 678.84H, Anion Gap 5L, Glomerular Filtration Rate > 60.0, Calcium Level 6.9L, Magnesium Level 2.3, Ferritin 384H, Total Bilirubin 0.3, Aspartate Amino Transf (AST/SGOT) 23, Alanine Aminotransferase (ALT/SGPT) 24, Alkaline Phosphatase 67, Lactate Dehydrogenase 250H, Total Creatine Kinase 176, Creatine Kinase MB 1.0, Creatine Kinase MB Relative Index 0.57, Troponin I < 0.02, C- Reactive Protein, Quantitative 2.28H, Total Protein 6.2L, Albumin 3.0L, Albumin/Globulin Ratio 0.9L, Procalcitonin <0.05 09/04/20 12:22: Coronavirus (COVID-19)(PCR) POSITIVEA, Influenza Type A (RT-PCR) NEGATIVE, Influenza Type B (RT-PCR) NEGATIVE, Respiratory Syncytial Virus (PCR) NEGATIVE 09/04/20 13:24: Lactic Acid Level 0.7 CBC/BMP Laboratory Tests 09/04/20 12:00 Microbiology Microbiology 09/04/20 Blood Culture, Received Pending 09/04/20 Blood Culture, Received Pending Home Medications Scheduled Albuterol Sulfate (Ventolin Hfa) 18 Gm Hfa.aer.ad, 2 PUFF INH Q6H Cetirizine HCl (Cetirizine HCl) 10 Mg Tablet, 10 MG PO DAILY Famotidine (Famotidine) 40 Mg Tablet, 20 MG PO QPM Fluticasone/Vilanterol (Breo Ellipta 100-25 Mcg INH) 1 Inh Inh, 1 PUFF INH DAILY Hydrochlorothiazide (Hydrochlorothiazide) 25 Mg Tab, 25 MG PO DAILY Levothyroxine Sodium (Levothyroxine Sodium) 100 Mcg Tablet, 100 MCG PO QAM Paroxetine HCl (Paroxetine) 10 Mg Tab, 10 MG PO DAILY Umeclidinium S[place]er (Incruse Ellipta) 62.5 Mcg/Inh Inh, 1 PUFF INH QPM Scheduled PRN Acetaminophen (Acetaminophen) 500 Mg Tablet, 1,000 MG PO Q8H PRN for PAIN Albuterol Sulf (Albuterol Sulfate) 2.5 Mg/3 Ml Nebu, 2.5 MG INH QID PRN for SHORTNESS OF BREATH Allergies Coded Allergies: Sulfa (Sulfonamide Antibiotics) (Verified Allergy, Mild, RASH, 09/04/20) JR COLLINS MD Sep 04, 2020 17:42
[2020-09-04] MEDS ORDERED: ALBUTEROL SULFATE 2.5 MG/0.5 ML INH NEB SOLN INH PRN (17:45)
[2020-09-04] MEDS ORDERED: ACETAMINOPHEN 500 MG TAB PO PRN (17:45)
[2020-09-04] MEDS ORDERED: FAMOTIDINE 20 MG TAB PO SCH (18:00)
[2020-09-04] MEDS: ALBUTEROL 90 MCG/ACT 8GM HFA INHALER INH SCH (20:00)
[2020-09-04] MEDS: ADVAIR HFA 230/21MCG INHALER INH SCH (21:09)
[2020-09-04 21:18] VITALS: BP 123/58
[2020-09-04] MEDS: predniSONE 20 MG TAB PO SCH (21:44)
[2020-09-05] VITALS: BP 111/54
[2020-09-05] MEDS: ALBUTEROL 90 MCG/ACT 8GM HFA INHALER INH SCH ×3 (01:55→12:30)
[2020-09-05 04:00] VITALS: BP 103/54
[2020-09-05] MEDS ORDERED: LEVOTHYROXINE 100MCG TABLET (0.1MG) PO SCH (06:00)
[2020-09-05 07:12] LABS: BASO % 0.2 % (0.0-1.0); HEMATOCRIT 43.6 % (36.0-47.0); HEMOGLOBIN 14.1 g/dl (12.0-15.5); LYMPH # 0.5 10^3/uL (1.5-5.0); LYMPH % 10.5 % (24.0-44.0); MEAN CORPUSCULAR HEMOGLOBIN 28.7 pg (27.0-33.0); MEAN CORPUSCULAR HGB CONC 32.3 g/dl (32.0-36.5); MEAN CORPUSCULAR VOLUME 88.8 fl (80.0-96.0); MONO # 0.1 10^3/uL (0.0-0.8); MONO % 1.9 % (0.0-5.0); NEUTROPHILS # 4.1 10^3/uL (1.5-8.5); NEUTROPHILS % 86.8 % (36.0-66.0); PLATELET COUNT, AUTOMATED 153 10^3/uL (150-450); RED BLOOD COUNT 4.91 10^6/uL (4.00-5.40); WHITE BLOOD COUNT 4.7 10^3/uL (4.0-10.0)
[2020-09-05 07:29] LABS: INR 0.89; PROTHROMBIN TIME 12.2 SECONDS (12.5-14.3)
[2020-09-05 07:32] LABS: D-DIMER QUANT 870.41 ng/ml (<500)
[2020-09-05 07:55] LABS: ALBUMIN 3.2 GM/DL (3.2-5.2); BILIRUBIN,DIRECT 0.2 MG/DL (0.0-0.2); BILIRUBIN,TOTAL 0.3 MG/DL (0.2-1.0); C REACTIVE PROTEIN QUANTITATIV 3.63 MG/DL (0.00-0.30); CALCIUM LEVEL 7.2 MG/DL (8.8-10.2); CREATININE FOR GFR 1.02 MG/DL (0.55-1.30); GLOMERULAR FILTRATION RATE 57.9 (>45); MAGNESIUM LEVEL 2.6 MG/DL (1.8-2.4); POTASSIUM SERUM 3.7 MEQ/L (3.5-5.1); TOTAL PROTEIN 6.9 GM/DL (6.4-8.2)
[2020-09-05 08:42] VITALS: BP 106/55
[2020-09-05] MEDS: predniSONE 20 MG TAB PO SCH (08:44)
[2020-09-05] MEDS ORDERED: CETIRIZINE (ZyrTEC) 10 MG TAB PO SCH (09:00)
[2020-09-05] MEDS ORDERED: PARoxetine 10MG TABLET PO SCH (09:00)
[2020-09-05] MEDS ORDERED: ENOXAPARIN 40MG/0.4ML SYRINGE (J1650 PER 10MG) SC SCH (09:00)
[2020-09-05] MEDS ORDERED: hydroCHLOROthiazide 25 MG TAB PO SCH (09:00)
[2020-09-05] MEDS: ADVAIR HFA 230/21MCG INHALER INH SCH (09:16)
--- NOTE | 2020-09-05 09:23 | ECGEPIP ---
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
[2020-09-05] MEDS ORDERED: NICO14PA TD (10:17)
[2020-09-05] MEDS ORDERED: PRED10TA2 PO (10:17)
--- NOTE | 2020-09-05 12:37 | DS.PDOC ---
Discharge Summary General Date of Admission Sep 04, 2020 at 16:34 Date of Discharge 09/05/20 Discharge Summary PROCEDURES PERFORMED DURING STAY: [None]. ADMITTING DIAGNOSES / DISCHARGE DIAGNOSES: Fever / Dyspnea - likely 2/2 COVID19 infection s/p Hypokalemia - possibly 2/2 diarrhea Chronic COPD Active Smoker / Nicotine dependence HTN DLP Hypothyroidism Depression GERD DVT prophylaxis COMPLICATIONS/CHIEF COMPLAINT: Fever HISTORY OF PRESENT ILLNESS: Patient is a 64 year old female who has been living with her fianc who tested positive for COVID on 08/25. Patient reported that she has been quarantined at home, however, continued to experience persistent fevers and body aches. Patient was noted to have chills as well. Patient denies any shortness of breath. Reports a mild cough with green sputum. Denies any chest pain or palpitations. Patient has experience some nausea without vomiting. Denies any abdominal pain. Reports some diarrhea, however, her last bowel movement was this morning, which was formed. Patient denies any urinary discomfort. Patient was admitted to hospital service for further evaluation and treatment. HOSPITAL COURSE: Fever / Dyspnea - likely 2/2 COVID19 infection - Patient remains afebrile / hemodynamically stable - Patient continues to saturate well on room air - Lab work with minimal elevation of inflammatory markers - Imaging noted - c/w Prednisone; will provide taper on discharge - c/w inhaled therapy as ordered - c/w incentive spirometry - Patient reports that she feels better than she did yesterday; patient has been ambulating in the room without any difficulties and reports that she wants to go home - Patient is medically stable for discharge home; she has been advised to remain under quarantine - Patient has been advised to follow-up with her primary care provider within the next 7 days s/p Hypokalemia - possibly 2/2 diarrhea Chronic COPD - See above Active Smoker / Nicotine dependence - Advised smoking cessation - c/w Nicotine patch HTN - BP well controlled - c/w HCTZ with hold parameters DLP - c/w ASA and Atorvastatin Hypothyroidism - c/w Levothyroxine Depression - c/w Paroxetine GERD - c/w Famotidine DVT prophylaxis - c/w Lovenox DISCHARGE MEDICATIONS: Please see below. ALLERGIES: Please see below. PHYSICAL EXAMINATION ON DISCHARGE: Vitals (See below) General: Sitting up at the edge of bed and eating breakfast, appears to be comfortable, in no acute distress, asking if she can go home, AAOx3 HEENT: NC, AT CVS: +S1S2 Lungs: Fair air entry b/l, no appreciable wheezing or rales Abdomen: Soft, ND, NT, +BSx4 Extremities: No evidence of edema, - Calf tenderness LABORATORY DATA: Please see below. ACTIVITY: [As tolerated]. DISCHARGE PLAN: Follow-up with primary care provider within the next 7 days Remain compliant with treatment plan and medications Return to the ER if you experience any problems DISPOSITION: Home with services DISCHARGE CONDITION: [Stable]. TIME SPENT ON DISCHARGE: 35 minutes Vital Signs/I&Os Vital Signs Date Time Temp Pulse Resp B/P (MAP) Pulse Ox O2 Delivery O2 Flow Rate FiO2 09/05/20 08:42 98.7 81 20 106/55 (72) 93 Room Air 09/05/20 04:00 2.0 I&O- Last 24 Hours up to 6 AM 09/05/20 06:00 Intake Total 0 ml Balance 0 ml Laboratory Data Labs 24H Laboratory Tests 2 09/04/20 13:24: Lactic Acid Level 0.7 09/05/20 07:02: Immature Granulocyte % (Auto) 0.6, Neutrophils (%) (Auto) 86.8H, Lymphocytes (%) (Auto) 10.5L, Monocytes (%) (Auto) 1.9, Eosinophils (%) (Auto) 0.0, Basophils (%) (Auto) 0.2, Neutrophils # (Auto) 4.1, Lymphocytes # (Auto) 0.5L, Monocytes # (Auto) 0.1, Eosinophils # (Auto) 0.0, Basophils # (Auto) 0.0, Nucleated Red Blood Cells % (auto) 0.0, Prothrombin Time 12.2, Prothromb Time International Ratio 0.89, Activated Partial Thromboplast Time 32.0, Fibrinogen 667H, D-Dimer, Quantitative 870.41H, Anion Gap 8, Glomerular Filtration Rate 57.9, Calcium Level 7.2L, Magnesium Level 2.6H, Ferritin 424H, Total Bilirubin 0.3, Direct Bilirubin 0.2, Aspartate Amino Transf (AST/SGOT) 23, Alanine Aminotransferase (ALT/SGPT) 27, Alkaline Phosphatase 68, C-Reactive Protein, Quantitative 3.63H, EL-Nmq-R-Type Natriuretic Peptide 96, Total Protein 6.9, Albumin 3.2, Albumin/Globulin Ratio 0.9L, Procalcitonin <0.05 CBC/BMP Laboratory Tests 09/05/20 07:02 Microbiology Microbiology 09/04/20 Blood Culture, Received Pending 09/04/20 Blood Culture, Received Pending Discharge Medications Scheduled Albuterol Sulfate (Ventolin Hfa) 18 Gm Hfa.aer.ad, 2 PUFF INH Q6H, (Reported) Cetirizine HCl (Cetirizine HCl) 10 Mg Tablet, 10 MG PO DAILY, (Reported) Famotidine (Famotidine) 40 Mg Tablet, 20 MG PO QPM, (Reported) Fluticasone/Vilanterol (Breo Ellipta 100-25 Mcg INH) 1 Inh Inh, 1 PUFF INH DAILY, (Reported) Hydrochlorothiazide (Hydrochlorothiazide) 25 Mg Tab, 25 MG PO DAILY, (Reported) Levothyroxine Sodium (Levothyroxine Sodium) 100 Mcg Tablet, 100 MCG PO QAM, (Reported) Paroxetine HCl (Paroxetine) 10 Mg Tab, 10 MG PO DAILY, (Reported) Prednisone (Prednisone) 10 Mg Tablet, 10 MG PO TAPER Take 4 tabs daily x 3 days, then 3 tabs daily x 3 days, then 2 tabs daily x 3 days, then 1 tab daily x 3 days and stop Umeclidinium [place] (Incruse Ellipta) 62.5 Mcg/Inh Inh, 1 PUFF INH QPM, (Reported) Scheduled PRN Acetaminophen (Acetaminophen) 500 Mg Tablet, 1,000 MG PO Q8H PRN for PAIN, (Reported) Albuterol Sulf (Albuterol Sulfate) 2.5 Mg/3 Ml Nebu, 2.5 MG INH QID PRN for SHORTNESS OF BREATH, (Reported) Nicotine (Nicotine Patch) 14 Mg Patch.td24, 1 PATCH TD DAILYPRN PRN for NICOTINE WITHDRAWAL Allergies Coded Allergies: Sulfa (Sulfonamide Antibiotics) (Verified Allergy, Mild, RASH, 09/04/20) JR COLLINS MD Sep 05, 2020 12:37
== END 2020-09-05 14:30 | disposition home health service (06) | DRG 179 ==
LOC: M ED 12:02 → M 4MAIN 16:34 → ENRESERV 17:17
PROVIDERS: ADMIT Internal Medicine; ATTEND Internal Medicine
DX: U07.1 COVID-19 (principal); E87.6 Hypokalemia; R19.7 Diarrhea, unspecified; J44.9 Chronic obstructive pulmonary disease, unspecified; I10 Essential (primary) hypertension; E03.9 Hypothyroidism, unspecified; K21.9 Gastro-esophageal reflux disease without esophagitis; F32.9 Major depressive disorder, single episode, unspecified; F17.210 Nicotine dependence, cigarettes, uncomplicated; Z79.899 Other long term (current) drug therapy; Z88.2 Allergy status to sulfonamides

== ENCOUNTER → 2020-09-21 | Outpatient (REF) | payer MEDICARE, MEDICAID ==
[~2020-09-21] MED LIST changes: +ACET500T15 PO; +CETI-24 PO; +FAMO40TA3 PO; +HYDR-3490 PO; -HYDR25TAB PO; +LEVO100T5 PO; +NICO14PA TD; +PRED10TA2 PO; +VENTAER INH
== END ==
LOC: M LAB REF 16:56
PROVIDERS: ATTEND Nurse Practitioner Adult Health
DX: R05 Cough (principal)

== ENCOUNTER → 2021-01-04 | Outpatient (CLI) | payer MEDICARE, MEDICAID ==
[~2021-01-04] MED LIST changes: +ASPI-569 PO; -ASPI81TAEC PO
--- NOTE | 2021-01-04 20:52 | REP ---
INDICATION: LOW BACK PAIN COMPARISON: None. TECHNIQUE: AP, lateral, bilateral oblique, and coned-down views of the lumbar spine. FINDINGS: Alignment and lordosis maintained. Vertebral bodies are intact. Disc spaces are relatively normal/age-appropriate. No acute fracture/compression injury or subluxation. No obvious spondylolysis or spondylolisthesis. Relatively mild age-related changes include subtle anterior osteophyte formation at multiple levels along with evidence for hypertrophic facet changes primarily involving L4-5 and L5-S1. IMPRESSION: Relatively mild to moderate degenerative changes by radiographic evaluation. If the patient remains symptomatic consider MRI for further investigation. <Electronically signed by Carlos Cartagena > 01/04/21 [id number]
== END ==
LOC: M RAD 14:47
PROVIDERS: ATTEND Nurse Practitioner Family
DX: M54.5 Low back pain (principal)

== ENCOUNTER → 2021-01-27 | Outpatient (REF) | payer MEDICARE, MEDICAID | LOC: M SFHCWAGY 17:24 | PROVIDERS: ATTEND Nurse Practitioner Women's Health | DX: Z12.4 Encounter for screening for malignant neoplasm of cervix (principal); R87.610 Atypical squamous cells of undetermined significance on cytologic smear of cervix (ASC-US); R87.810 Cervical high risk human papillomavirus (HPV) DNA test positive | CPT/HCPCS: 87624; G0123 ==

== ENCOUNTER → 2021-01-27 | Outpatient (CLI) | payer MEDICARE, MEDICAID ==
--- NOTE | 2021-01-27 15:03 | REPMRS ---
Patient History The patient states she had a clinical breast exam in January 2021. Family history of breast cancer at age 50 or over in paternal grandmother, ovarian cancer at age 19 in sister. Benign excisional biopsy of the left breast, 1985. Moderna vaccine 11/05/20 left arm. 12/03/20 left arm. Patient states no breast complaints today. Patient has signed MRS History Sheet. Digital Woman Screen Mammo: January 27, 2021 - Exam #: [id number] Bilateral CC and MLO view(s) were taken. Technologist: RT Cesilia Prior study comparison: March 12, 2019, bilateral digital woman screen mammo performed at [facility]. February 14, 2018, bilateral digital woman screen mammo performed at [facility]. November 23, 2016, digital woman screen mammo performed at [facility]. FINDINGS: There are scattered fibroglandular densities. The Volpara volumetric breast density category is:B. There are stable bilateral nodular densities. There has been no change in the appearance of the mammogram from the prior studies. There is a mild amount of scattered fibroglandular density which is fairly symmetric. There is no interval development of dominant mass, architectural distortion, or grouped microcalcification suggestive of malignancy. 3-D tomosynthesis shows no additional findings. Assessment: BI-RADS/ACR category 2 mammogram. Benign Findings. Recommendation Routine screening mammogram of both breasts in 1 year (for women over age 40). This patient's [facility] Lifetime Breast Cancer Risk is estimated at 5.5 %. This mammogram was interpreted with the aid of an FDA-approved computer-aided dectection system. Electronically Signed By: Darrel Blanc MD 01/27/21 [id number]
== END ==
LOC: M WHC 13:23
PROVIDERS: ATTEND Nurse Practitioner Women's Health
DX: Z01.419 Encounter for gynecological examination (general) (routine) without abnormal findings (principal); Z12.31 Encounter for screening mammogram for malignant neoplasm of breast; Z80.41 Family history of malignant neoplasm of ovary; Z86.018 Personal history of other benign neoplasm
CPT/HCPCS: 77063; 77067; G0101

== ENCOUNTER → 2021-01-31 | Outpatient (CLI) | payer MEDICARE, MEDICAID ==
[2021-01-31 11:36] LABS: BLOOD UREA NITROGEN 14 MG/DL (7-18); CREATININE FOR GFR 0.84 MG/DL (0.55-1.30); GLOMERULAR FILTRATION RATE > 60.0 (>45)
== END ==
LOC: M LAB 10:55
PROVIDERS: ATTEND Orthopaedic Surgery
DX: M54.5 Low back pain (principal)

== ENCOUNTER → 2021-02-09 | Outpatient (CLI) | payer MEDICARE, MEDICAID ==
--- NOTE | 2021-02-09 16:21 | REPVR ---
PROCEDURE INFORMATION: Exam: MR Lumbar Spine Without and With Contrast Exam date and time: 02/09/2021 3:27 PM Age: 65 years old Clinical indication: Low back pain; Patient HX: Lbp; Additional info: Lbp R/O spinal stenosis/other pathology TECHNIQUE: Imaging protocol: Multiplanar magnetic resonance images of the lumbar spine without and with intravenous contrast. Contrast material: PROHANCE; Contrast volume: 15 ml; Contrast route: INTRAVENOUS (IV); COMPARISON: CR Spine. Lumbosacral, complete 01/04/2021 2:58 PM FINDINGS: Vertebrae: There is no fracture. The lumbar vertebra maintain their height and alignment. Stir images demonstrate no evidence marrow edema or marrow infiltrating lesion. There is no marrow enhancement. Spinal cord: The lower thoracic spinal cord, conus and cauda equina are normal. No abnormal enhancement. L1-L2: No significant disc disease. No significant spinal canal stenosis. No neural foraminal stenosis. L2-L3: No significant disc disease. No significant spinal canal stenosis. No neural foraminal stenosis. L3-L4: No disc bulge. There is facet hypertrophy. No central stenosis. Mild right foraminal stenosis. L4-L5: Mild disc bulge. Facet and ligament hypertrophy. Mild central and foraminal stenosis. L5-S1: No disc bulge. Facet hypertrophy. No central or foraminal stenosis. Soft tissues: There is no paraspinous or intraspinal mass, hemorrhage or fluid collection. No abnormal enhancement. Kidneys and ureters: There is a 7 mm simple cyst in the right kidney. Other findings: There is no disc edema or enhancement. IMPRESSION: Mild degenerative changes with mild central and foraminal stenosis at L4-L5. Electronically signed by: Bridger Pimentel On 02/09/2021 16:21:35 PM
== END ==
LOC: M PLARAD 12:49
PROVIDERS: ATTEND Orthopaedic Surgery
DX: M54.5 Low back pain (principal)

== ENCOUNTER → 2021-03-11 | Outpatient (CLI) | payer MEDICARE, MEDICAID ==
--- NOTE | 2021-03-11 11:36 | REP ---
INDICATION: NICTOINE DEPEND COMPARISON: 03/10/2020, 01/10/2019 TECHNIQUE: Axial noncontrast images from the thoracic inlet to the upper abdomen using low-dose lung screening technique (LDCT). FINDINGS: The bilateral lung joe are well aerated and stable chronic changes are again noted. Tracheobronchial tree is patent. No effusion. No pneumothorax. There is a new 5 mm nodule in the posterior aspect of the left upper lobe (series 201; image 35). No further acute consolidation, suspicious nodule or mass lesion identified. IMPRESSION: Lung-RADS category 3. New 5 mm nodule in the left upper lobe. Management recommendations include 6 month follow-up low-dose CT evaluation. <Electronically signed by Carlos Cartagena > 03/11/21 [id number]
== END ==
LOC: M RAD 10:36
PROVIDERS: ATTEND Nurse Practitioner Adult Health
DX: F17.218 Nicotine dependence, cigarettes, with other nicotine-induced disorders (principal)

== ENCOUNTER → 2021-08-06 | Outpatient (CLI) | payer MEDICARE, MEDICAID ==
--- NOTE | 2021-08-07 16:45 | REP ---
INDICATION: CHRONIC COUGH COMPARISON: 09/04/2020 TECHNIQUE: PA and lateral. FINDINGS: The mediastinum and cardiac silhouette are normal. The lung joe are clear and without acute consolidation, effusion, or pneumothorax. The skeletal structures are intact and normal. IMPRESSION: No acute cardiopulmonary process. <Electronically signed by Carlos Cartagena > 08/07/21 [id number]
== END ==
LOC: M RAD 12:19
PROVIDERS: ATTEND Nurse Practitioner Family
DX: R05.3 Chronic cough (principal)

== ENCOUNTER → 2021-09-10 | Outpatient (CLI) | payer MEDICARE, MEDICAID ==
[2021-09-10 12:23] LABS: BLOOD UREA NITROGEN 24 MG/DL (7-18); CREATININE FOR GFR 0.86 MG/DL (0.55-1.30); GLOMERULAR FILTRATION RATE > 60.0 (>45)
== END ==
LOC: M LAB 11:15
PROVIDERS: ATTEND Nurse Practitioner Adult Health
DX: J44.9 Chronic obstructive pulmonary disease, unspecified (principal)

== ENCOUNTER → 2021-10-21 | Outpatient (REF) | payer MEDICARE, MEDICAID | LOC: M LAB REF 14:43 | PROVIDERS: ATTEND Nurse Practitioner Adult Health | DX: J44.9 Chronic obstructive pulmonary disease, unspecified (principal) ==

== ENCOUNTER → 2021-11-15 | Outpatient (CLI) | payer MEDICARE, MEDICAID | LOC: M WUC 12:14 | PROVIDERS: ATTEND Nurse Practitioner Family | DX: R09.02 Hypoxemia (principal) ==

== ENCOUNTER 2021-12-26 09:45 | Inpatient (IN) | payer MEDICAID, MEDICARE ==
[~2021-12-26] VITALS: Ht 157.5 cm; Wt 77.0 kg
[~2021-12-26 09:45] MED LIST changes: +TUDO1AER2 INH; -TUDO1AER3 INH
[2021-12-26] MEDS ORDERED: ACETAMINOPHEN TAB 650MG DOSE (2X325MG) PO ONE (10:10)
[2021-12-26 10:45] LABS: BASO % 0.2 % (0.0-1.0); EOS % 0.1 % (0.0-3.0); HEMATOCRIT 40.9 % (36.0-47.0); HEMOGLOBIN 13.4 g/dl (12.0-15.5); LYMPH % 6.5 % (24.0-44.0); MEAN CORPUSCULAR HEMOGLOBIN 29.1 pg (27.0-33.0); MEAN CORPUSCULAR HGB CONC 32.8 g/dl (32.0-36.5); MEAN CORPUSCULAR VOLUME 88.7 fl (80.0-96.0); MONO # 1.2 10^3/uL (0.0-0.8); MONO % 7.2 % (2.0-8.0); NEUTROPHILS # 13.6 10^3/uL (1.5-8.5); NEUTROPHILS % 85.6 % (36.0-66.0); PLATELET COUNT, AUTOMATED 223 10^3/uL (150-450); RED BLOOD COUNT 4.61 10^6/uL (4.00-5.40); WHITE BLOOD COUNT 15.9 10^3/uL (4.0-10.0)
[2021-12-26 11:09] LABS: CK-MB VALUE MASS < 1.0 NG/ML (<3.6); CPK CREATINE PHOSPHOKINASE 110 U/L (26-192); MB/CK RELATIVE INDEX 0.91 (< OR =4)
[2021-12-26 11:16] LABS: ALBUMIN 3.6 GM/DL (3.2-5.2); ALT/SGPT 25 U/L (12-78); BILIRUBIN,DIRECT 0.2 MG/DL (0.0-0.2); BILIRUBIN,TOTAL 0.7 MG/DL (0.2-1.0); BLOOD UREA NITROGEN 8 MG/DL (7-18); CALCIUM LEVEL 8.9 MG/DL (8.8-10.2); CARBON DIOXIDE LEVEL 26 MEQ/L (21-32); CHLORIDE LEVEL 109 MEQ/L (98-107); CREATININE FOR GFR 0.66 MG/DL (0.55-1.30); GLOMERULAR FILTRATION RATE > 60.0 (>45); GLUCOSE, FASTING 137 MG/DL (70-100); NT-PRO BNP 293 PG/ML (<125); POTASSIUM SERUM 3.2 MEQ/L (3.5-5.1); SODIUM LEVEL 142 MEQ/L (136-145); THYROID STIMULATING HORMONE 0.181 uIU/ML (0.358-3.740); TOTAL PROTEIN 6.4 GM/DL (6.4-8.2)
[2021-12-26] MEDS ORDERED: ISOVUE-370 76% 100ML VIAL As Ordered ONE (12:11)
[2021-12-26] MEDS ORDERED: cefTRIAXone SOD 2 GM in D5W MINI-BAG PLUS 50 ML IV ONE (13:30)
[2021-12-26] MEDS ORDERED: METF-838 PO (13:47)
[2021-12-26] MEDS ORDERED: LEVO88TA3 PO (13:47)
[2021-12-26] MEDS ORDERED: ATOR80TA59 PO (13:47)
[2021-12-26] MEDS ORDERED: POTA-151 PO (13:47)
[2021-12-26] MEDS ORDERED: TORS20TA2 PO (13:47)
[2021-12-26] MEDS ORDERED: HOME MED LIST COMPLETE! XX SCH (13:55)
[2021-12-26] MEDS ORDERED: IPRATROPIUM 0.5MG/ALBUTEROL 2.5MG INH SOL UD 3ML (DUONEB) NEB PRN (14:10)
[2021-12-26] MEDS ORDERED: GLUCAGON INJ 1MG VIAL SC PRN (14:10)
[2021-12-26] MEDS ORDERED: ACETAMINOPHEN 500 MG TAB PO PRN (14:10)
[2021-12-26] MEDS ORDERED: MAALOX 30 ML SUSP *UDC PO PRN (14:10)
[2021-12-26] MEDS ORDERED: GLUCOSE 4GM CHEW TABLET PO PRN (14:10)
[2021-12-26] MEDS ORDERED: DEXTROSE 50% 50 ML SYRINGE IV PRN (14:10)
[2021-12-26] MEDS ORDERED: CYCLOBENZAPRINE 5MG TABLET PO PRN (14:10)
[2021-12-26] MEDS ORDERED: MOM 30ML SUSPENSION UDC PO PRN (14:10)
[2021-12-26] MEDS ORDERED: POTASSIUM CHLORIDE 10MEQ SR TABLET PO ONE (14:20)
[2021-12-26] MEDS: PARoxetine 10MG TABLET PO SCH (15:26)
[2021-12-26 15:41] LABS: CK-MB VALUE MASS 1.5 NG/ML (<3.6); MB/CK RELATIVE INDEX 1.61 (< OR =4)
[2021-12-26 17:40] VITALS: BP 138/61
[2021-12-26 17:50] LABS: CK-MB VALUE MASS < 1.0 NG/ML (<3.6); CPK CREATINE PHOSPHOKINASE 81 U/L (26-192); MB/CK RELATIVE INDEX 1.23 (< OR =4)
[2021-12-26] MEDS: HumaLOG INSULIN (NovoLOG) PER UNIT SC SCH ×2 (18:07→21:00)
[2021-12-26] MEDS: LevoFLOXacin IV 750 MG in IV 1 EA IV SCH (18:07)
[2021-12-26] MEDS: ACETAMINOPHEN TAB 650MG DOSE (2X325MG) PO PRN (18:09)
[2021-12-26] MEDS: traMADol 50 MG TAB PO PRN (18:10)
[2021-12-26] MEDS: IPRATROPIUM 0.5MG/ALBUTEROL 2.5MG INH SOL UD 3ML (DUONEB) NEB SCH (19:23)
[2021-12-26 20:00] VITALS: BP 104/51
[2021-12-26] MEDS: ENOXAPARIN 40MG/0.4ML SYRINGE (J1650 PER 10MG) SC SCH (21:22)
[2021-12-26] MEDS: FAMOTIDINE 20 MG TAB PO SCH (21:22)
[2021-12-26] MEDS: DOCUSATE SODIUM 100MG CAPSULE PO SCH (21:22)
[2021-12-26] MEDS: guaiFENesin ER 600 MG TAB PO SCH (21:23)
[2021-12-27] VITALS: BP 107/55
[2021-12-27] MEDS: ACETAMINOPHEN TAB 650MG DOSE (2X325MG) PO PRN ×4 (00:51→17:04)
[2021-12-27] MEDS: traMADol 50 MG TAB PO PRN ×3 (00:52→14:59)
[2021-12-27] MEDS: IPRATROPIUM 0.5MG/ALBUTEROL 2.5MG INH SOL UD 3ML (DUONEB) NEB SCH ×4 (03:14→20:02)
[2021-12-27 04:00] VITALS: BP 106/54
[2021-12-27] MEDS: LEVOTHYROXINE 88MCG TABLET (0.088 MG) PO SCH (05:06)
[2021-12-27 06:25] LABS: BASO % 0.2 % (0.0-1.0); EOS % 0.2 % (0.0-3.0); HEMATOCRIT 38.7 % (36.0-47.0); HEMOGLOBIN 12.6 g/dl (12.0-15.5); LYMPH # 1.8 10^3/uL (1.5-5.0); LYMPH % 12.7 % (24.0-44.0); MEAN CORPUSCULAR HEMOGLOBIN 29.3 pg (27.0-33.0); MEAN CORPUSCULAR HGB CONC 32.6 g/dl (32.0-36.5); MONO # 1.1 10^3/uL (0.0-0.8); MONO % 7.8 % (2.0-8.0); NEUTROPHILS % 78.7 % (36.0-66.0); PLATELET COUNT, AUTOMATED 187 10^3/uL (150-450); WHITE BLOOD COUNT 13.9 10^3/uL (4.0-10.0)
[2021-12-27 06:50] LABS: ALBUMIN 3.1 GM/DL (3.2-5.2); ALT/SGPT 20 U/L (12-78); BILIRUBIN,TOTAL 0.5 MG/DL (0.2-1.0); BLOOD UREA NITROGEN 9 MG/DL (7-18); CALCIUM LEVEL 8.8 MG/DL (8.8-10.2); CARBON DIOXIDE LEVEL 25 MEQ/L (21-32); CHLORIDE LEVEL 109 MEQ/L (98-107); FREE T4 1.24 NG/DL (0.76-1.46); GLOMERULAR FILTRATION RATE > 60.0 (>45); GLUCOSE, FASTING 112 MG/DL (70-100); MAGNESIUM LEVEL 1.9 MG/DL (1.8-2.4); POTASSIUM SERUM 3.6 MEQ/L (3.5-5.1); SODIUM LEVEL 141 MEQ/L (136-145); THYROID STIMULATING HORMONE 0.304 uIU/ML (0.358-3.740); TOTAL PROTEIN 6.8 GM/DL (6.4-8.2)
[2021-12-27 07:45] VITALS: BP 102/52
[2021-12-27] MEDS: ATORVASTATIN 20 MG TAB PO SCH (07:54)
[2021-12-27] MEDS: HumaLOG INSULIN (NovoLOG) PER UNIT SC SCH ×4 (07:54→20:40)
[2021-12-27] MEDS: PARoxetine 10MG TABLET PO SCH (07:54)
[2021-12-27] MEDS: DOCUSATE SODIUM 100MG CAPSULE PO SCH ×2 (07:54→20:39)
[2021-12-27] MEDS: guaiFENesin ER 600 MG TAB PO SCH ×2 (07:55→20:39)
[2021-12-27] MEDS: CETIRIZINE (ZyrTEC) 10 MG TAB PO SCH (07:55)
[2021-12-27 11:32] VITALS: BP 98/62
[2021-12-27 16:24] VITALS: BP 98/50
[2021-12-27] MEDS: LevoFLOXacin IV 750 MG in IV 1 EA IV SCH (18:44)
[2021-12-27 20:00] VITALS: BP 136/63
[2021-12-27] MEDS: ENOXAPARIN 40MG/0.4ML SYRINGE (J1650 PER 10MG) SC SCH (20:40)
[2021-12-27] MEDS: FAMOTIDINE 20 MG TAB PO SCH (20:40)
[2021-12-28] VITALS: BP 112/55
[2021-12-28] MEDS: ACETAMINOPHEN TAB 650MG DOSE (2X325MG) PO PRN ×4 (01:33→17:05)
[2021-12-28] MEDS: traMADol 50 MG TAB PO PRN ×3 (01:34→13:53)
[2021-12-28] MEDS: IPRATROPIUM 0.5MG/ALBUTEROL 2.5MG INH SOL UD 3ML (DUONEB) NEB SCH ×4 (02:25→19:42)
[2021-12-28 03:56] LABS: BASO % 0.2 % (0.0-1.0); EOS # 0.1 10^3/uL (0.0-0.5); EOS % 0.8 % (0.0-3.0); HEMATOCRIT 34.2 % (36.0-47.0); LYMPH # 1.6 10^3/uL (1.5-5.0); LYMPH % 17.8 % (24.0-44.0); MEAN CORPUSCULAR HEMOGLOBIN 28.5 pg (27.0-33.0); MEAN CORPUSCULAR HGB CONC 32.2 g/dl (32.0-36.5); MEAN CORPUSCULAR VOLUME 88.6 fl (80.0-96.0); MONO # 0.8 10^3/uL (0.0-0.8); MONO % 8.3 % (2.0-8.0); NEUTROPHILS # 6.5 10^3/uL (1.5-8.5); NEUTROPHILS % 72.6 % (36.0-66.0); PLATELET COUNT, AUTOMATED 185 10^3/uL (150-450); RED BLOOD COUNT 3.86 10^6/uL (4.00-5.40)
[2021-12-28 04:00] VITALS: BP 112/55
[2021-12-28 04:37] LABS: ALBUMIN 2.8 GM/DL (3.2-5.2); ALT/SGPT 21 U/L (12-78); BILIRUBIN,TOTAL 0.3 MG/DL (0.2-1.0); BLOOD UREA NITROGEN 14 MG/DL (7-18); CALCIUM LEVEL 8.7 MG/DL (8.8-10.2); CARBON DIOXIDE LEVEL 27 MEQ/L (21-32); CHLORIDE LEVEL 109 MEQ/L (98-107); CREATININE FOR GFR 0.69 MG/DL (0.55-1.30); GLOMERULAR FILTRATION RATE > 60.0 (>45); GLUCOSE, FASTING 104 MG/DL (70-100); MAGNESIUM LEVEL 1.9 MG/DL (1.8-2.4); SODIUM LEVEL 142 MEQ/L (136-145); TOTAL PROTEIN 5.6 GM/DL (6.4-8.2)
[2021-12-28] MEDS: LEVOTHYROXINE 88MCG TABLET (0.088 MG) PO SCH (05:54)
[2021-12-28 07:29] VITALS: BP 142/65
[2021-12-28] MEDS: HumaLOG INSULIN (NovoLOG) PER UNIT SC SCH ×4 (07:30→19:53)
[2021-12-28] MEDS: ATORVASTATIN 20 MG TAB PO SCH (07:49)
[2021-12-28] MEDS: CETIRIZINE (ZyrTEC) 10 MG TAB PO SCH (07:49)
[2021-12-28] MEDS: DOCUSATE SODIUM 100MG CAPSULE PO SCH ×2 (07:49→19:52)
[2021-12-28] MEDS: guaiFENesin ER 600 MG TAB PO SCH ×2 (07:49→19:52)
[2021-12-28] MEDS: PARoxetine 10MG TABLET PO SCH (07:49)
[2021-12-28] MEDS: BENZONATATE 100MG CAPSULE PO PRN ×2 (13:53→22:04)
[2021-12-28 16:00] VITALS: BP 127/63
[2021-12-28] MEDS: LevoFLOXacin 750 MG TABLET PO SCH (17:05)
[2021-12-28] MEDS: FAMOTIDINE 20 MG TAB PO SCH (19:52)
[2021-12-28] MEDS: ENOXAPARIN 40MG/0.4ML SYRINGE (J1650 PER 10MG) SC SCH (19:53)
[2021-12-28 20:00] VITALS: BP 127/63
[2021-12-29] VITALS (13 sets, daily range): BP systolic 106–114; BP diastolic 53–60; O2SAT 91–96
[2021-12-29] MEDS: IPRATROPIUM 0.5MG/ALBUTEROL 2.5MG INH SOL UD 3ML (DUONEB) NEB SCH ×4 (01:10→19:11)
[2021-12-29] MEDS: traMADol 50 MG TAB PO PRN ×2 (05:31→13:26)
[2021-12-29] MEDS: BENZONATATE 100MG CAPSULE PO PRN ×2 (05:31→13:25)
[2021-12-29] MEDS: LEVOTHYROXINE 88MCG TABLET (0.088 MG) PO SCH (05:31)
[2021-12-29 06:31] LABS: BASO % 0.5 % (0.0-1.0); EOS # 0.1 10^3/uL (0.0-0.5); EOS % 1.3 % (0.0-3.0); HEMATOCRIT 37.2 % (36.0-47.0); HEMOGLOBIN 11.7 g/dl (12.0-15.5); LYMPH # 1.3 10^3/uL (1.5-5.0); LYMPH % 21.1 % (24.0-44.0); MEAN CORPUSCULAR HEMOGLOBIN 28.7 pg (27.0-33.0); MEAN CORPUSCULAR HGB CONC 31.5 g/dl (32.0-36.5); MEAN CORPUSCULAR VOLUME 91.2 fl (80.0-96.0); MONO # 0.6 10^3/uL (0.0-0.8); MONO % 9.3 % (2.0-8.0); NEUTROPHILS # 4.2 10^3/uL (1.5-8.5); NEUTROPHILS % 67.3 % (36.0-66.0); PLATELET COUNT, AUTOMATED 229 10^3/uL (150-450); RED BLOOD COUNT 4.08 10^6/uL (4.00-5.40); WHITE BLOOD COUNT 6.2 10^3/uL (4.0-10.0)
[2021-12-29 06:56] LABS: ALBUMIN 3.1 GM/DL (3.2-5.2); ALT/SGPT 19 U/L (12-78); BILIRUBIN,TOTAL 0.2 MG/DL (0.2-1.0); BLOOD UREA NITROGEN 11 MG/DL (7-18); CALCIUM LEVEL 9.1 MG/DL (8.8-10.2); CARBON DIOXIDE LEVEL 28 MEQ/L (21-32); CHLORIDE LEVEL 110 MEQ/L (98-107); CREATININE FOR GFR 0.58 MG/DL (0.55-1.30); GLOMERULAR FILTRATION RATE > 60.0 (>45); GLUCOSE, FASTING 94 MG/DL (70-100); MAGNESIUM LEVEL 2.1 MG/DL (1.8-2.4); SODIUM LEVEL 143 MEQ/L (136-145); TOTAL PROTEIN 6.3 GM/DL (6.4-8.2)
[2021-12-29] MEDS: HumaLOG INSULIN (NovoLOG) PER UNIT SC SCH ×4 (07:30→21:00)
[2021-12-29] MEDS: DOCUSATE SODIUM 100MG CAPSULE PO SCH ×2 (08:16→21:05)
[2021-12-29] MEDS: PARoxetine 10MG TABLET PO SCH (08:16)
[2021-12-29] MEDS: ACETAMINOPHEN TAB 650MG DOSE (2X325MG) PO PRN (08:16)
[2021-12-29] MEDS: ATORVASTATIN 20 MG TAB PO SCH (08:16)
[2021-12-29] MEDS: TORSEMIDE 20 MG TAB PO SCH (08:16)
[2021-12-29] MEDS: CETIRIZINE (ZyrTEC) 10 MG TAB PO SCH (08:16)
[2021-12-29] MEDS: guaiFENesin ER 600 MG TAB PO SCH ×2 (08:17→21:05)
[2021-12-29] MEDS: LevoFLOXacin 750 MG TABLET PO SCH (17:43)
[2021-12-29] MEDS: FAMOTIDINE 20 MG TAB PO SCH (21:05)
[2021-12-29] MEDS: ENOXAPARIN 40MG/0.4ML SYRINGE (J1650 PER 10MG) SC SCH (21:06)
[2021-12-30 01:10] VITALS: BP 136/66
[2021-12-30] MEDS: IPRATROPIUM 0.5MG/ALBUTEROL 2.5MG INH SOL UD 3ML (DUONEB) NEB SCH ×2 (03:30→07:39)
[2021-12-30] MEDS: LEVOTHYROXINE 88MCG TABLET (0.088 MG) PO SCH (05:22)
[2021-12-30 06:00] VITALS: BP 132/68
[2021-12-30 06:07] LABS: BASO % 0.5 % (0.0-1.0); EOS # 0.1 10^3/uL (0.0-0.5); EOS % 1.5 % (0.0-3.0); HEMATOCRIT 36.9 % (36.0-47.0); LYMPH # 1.7 10^3/uL (1.5-5.0); LYMPH % 26.9 % (24.0-44.0); MEAN CORPUSCULAR HGB CONC 32.5 g/dl (32.0-36.5); MEAN CORPUSCULAR VOLUME 89.1 fl (80.0-96.0); MONO # 0.7 10^3/uL (0.0-0.8); MONO % 10.8 % (2.0-8.0); NEUTROPHILS # 3.7 10^3/uL (1.5-8.5); PLATELET COUNT, AUTOMATED 273 10^3/uL (150-450); RED BLOOD COUNT 4.14 10^6/uL (4.00-5.40); WHITE BLOOD COUNT 6.2 10^3/uL (4.0-10.0)
[2021-12-30 06:43] LABS: ALBUMIN 3.1 GM/DL (3.2-5.2); ALT/SGPT 21 U/L (12-78); BILIRUBIN,TOTAL 0.2 MG/DL (0.2-1.0); BLOOD UREA NITROGEN 12 MG/DL (7-18); CALCIUM LEVEL 8.6 MG/DL (8.8-10.2); CARBON DIOXIDE LEVEL 28 MEQ/L (21-32); CHLORIDE LEVEL 107 MEQ/L (98-107); CREATININE FOR GFR 0.73 MG/DL (0.55-1.30); GLOMERULAR FILTRATION RATE > 60.0 (>45); GLUCOSE, FASTING 96 MG/DL (70-100); MAGNESIUM LEVEL 1.8 MG/DL (1.8-2.4); POTASSIUM SERUM 3.4 MEQ/L (3.5-5.1); SODIUM LEVEL 144 MEQ/L (136-145); TOTAL PROTEIN 6.2 GM/DL (6.4-8.2)
[2021-12-30] MEDS ORDERED: POTASSIUM CHLORIDE 10MEQ SR TABLET PO ONE (07:30)
[2021-12-30] MEDS: HumaLOG INSULIN (NovoLOG) PER UNIT SC SCH (07:30)
[2021-12-30] MEDS: DOCUSATE SODIUM 100MG CAPSULE PO SCH (08:09)
[2021-12-30] MEDS: TORSEMIDE 20 MG TAB PO SCH (08:10)
[2021-12-30] MEDS: guaiFENesin ER 600 MG TAB PO SCH (08:10)
[2021-12-30] MEDS: ATORVASTATIN 20 MG TAB PO SCH (08:10)
[2021-12-30] MEDS: CETIRIZINE (ZyrTEC) 10 MG TAB PO SCH (08:10)
[2021-12-30] MEDS: PARoxetine 10MG TABLET PO SCH (08:10)
[2021-12-30 09:00] VITALS: O2SAT 94
[2021-12-30] MEDS ORDERED: MUCI600T31 PO (09:39)
[2021-12-30] MEDS ORDERED: LEVO750T13 PO (09:39)
[2021-12-30] MEDS ORDERED: TORS20TA2 PO (11:53)
== END 2021-12-30 12:25 | disposition home or self-care (01) | DRG 194 ==
LOC: EDBD 09:45 → M ED 09:45 → M PCU 14:07 → M ED INP 14:07 → ENRESERV 16:36 → M PCU 17:28 → M MS5PR 12-30 01:05
PROVIDERS: ADMIT Internal Medicine; ATTEND Family Medicine
DX: J18.9 Pneumonia, unspecified organism (principal); J44.0 Chronic obstructive pulmonary disease with (acute) lower respiratory infection; I50.42 Chronic combined systolic (congestive) and diastolic (congestive) heart failure; I11.0 Hypertensive heart disease with heart failure; I25.10 Atherosclerotic heart disease of native coronary artery without angina pectoris; I25.2 Old myocardial infarction; E11.9 Type 2 diabetes mellitus without complications; E78.5 Hyperlipidemia, unspecified; E03.9 Hypothyroidism, unspecified; F32.A Depression, unspecified; K21.9 Gastro-esophageal reflux disease without esophagitis; Z86.16 Personal history of COVID-19; F17.210 Nicotine dependence, cigarettes, uncomplicated; E87.6 Hypokalemia; M62.830 Muscle spasm of back; Z79.899 Other long term (current) drug therapy; Z79.84 Long term (current) use of oral hypoglycemic drugs; Z88.2 Allergy status to sulfonamides

== ENCOUNTER → 2022-03-14 | Outpatient (CLI) | payer MEDICAID, MEDICARE ==
[~2022-03-14] MED LIST changes: +ALBU2.5V10; +ALBU2.5V10 INH; -ALBU83IN; -ALBU83IN INH; +LEVO750T13 PO; +METF-838 PO; +MUCI600T31 PO; +POTA-151 PO; +TORS20TA2 PO
== END ==
LOC: M PLAIMG 11:05
PROVIDERS: ATTEND Nurse Practitioner Family
DX: R94.4 Abnormal results of kidney function studies (principal); K57.90 Diverticulosis of intestine, part unspecified, without perforation or abscess without bleeding

== ENCOUNTER → 2022-06-02 | Outpatient (CLI) | payer MEDICARE ==
[~2022-06-02] MED LIST changes: +LEVO1TAB40 PO; -LEVO750T13 PO
== END ==
LOC: M PLAIMG 12:28
PROVIDERS: ATTEND Nurse Practitioner Adult Health
DX: R91.8 Other nonspecific abnormal finding of lung field (principal)

== ENCOUNTER 2022-08-02 07:33 | Emergency (ER) | payer MEDICARE ==
[~2022-08-02] VITALS: Ht 157.5 cm; Wt 72.6 kg
[2022-08-02] MEDS ORDERED: LEVO75TA4 (08:00)
[2022-08-02] MEDS ORDERED: ASPI81CH33 PO (08:01)
[2022-08-02] MEDS ORDERED: BENZ-18 (08:01)
[2022-08-02] MEDS ORDERED: B-122500 PO (08:01)
[2022-08-02] MEDS ORDERED: methylPREDNISolone 125MG 2ML VIAL IV ONE (08:35)
[2022-08-02 09:07] LABS: ABG BASE EXCESS 5.2 (-2.0-2.0); ABG HCO3 30.5 MEQ/L (22.0-26.0); ABG O2 SATURATION 98.7 % (95.0-99.0); ABG PARTIAL PRESSURE CO2 47.5 mmHg (35.0-45.0); ABG PARTIAL PRESSURE O2 136.6 mmHg (75.0-100.0); ABG STANDARD HCO3 29.2 MEQ/L (22.0-26.0); ABG pH (ARTERIAL) 7.426 UNITS (7.350-7.450)
[2022-08-02 09:22] LABS: BASO % 0.5 % (0.0-1.0); EOS # 0.1 10^3/uL (0.0-0.5); EOS % 1.1 % (0.0-3.0); HEMATOCRIT 42.4 % (36.0-47.0); HEMOGLOBIN 13.8 g/dl (12.0-15.5); LYMPH # 1.1 10^3/uL (1.5-5.0); LYMPH % 18.8 % (24.0-44.0); MEAN CORPUSCULAR HEMOGLOBIN 28.8 pg (27.0-33.0); MEAN CORPUSCULAR HGB CONC 32.5 g/dl (32.0-36.5); MEAN CORPUSCULAR VOLUME 88.5 fl (80.0-96.0); MONO # 0.7 10^3/uL (0.0-0.8); MONO % 12.7 % (2.0-8.0); NEUTROPHILS # 3.7 10^3/uL (1.5-8.5); NEUTROPHILS % 66.5 % (36.0-66.0); PLATELET COUNT, AUTOMATED 205 10^3/uL (150-450); RED BLOOD COUNT 4.79 10^6/uL (4.00-5.40); WHITE BLOOD COUNT 5.6 10^3/uL (4.0-10.0)
[2022-08-02 09:39] LABS: CHLORIDE LEVEL 96 MMOL/L (98-107); POTASSIUM SERUM 3.2 MMOL/L (3.5-5.1); SODIUM LEVEL 140 MMOL/L (136-145)
[2022-08-02 09:40] LABS: ALBUMIN 4.2 G/DL (3.2-5.2); CARBON DIOXIDE LEVEL 33 MMOL/L (20-31)
[2022-08-02 09:45] LABS: BLOOD UREA NITROGEN 12 MG/DL (9-23); CALCIUM LEVEL 8.5 MG/DL (8.3-10.6); GLUCOSE, FASTING 118 MG/DL (74-106)
[2022-08-02 09:46] LABS: ALKALINE PHOSPHATASE 92 U/L (46-116); BILIRUBIN,TOTAL 0.4 MG/DL (0.3-1.2)
[2022-08-02 09:47] LABS: ALT/SGPT 22 U/L (7.0-40); AST/SGOT 32 U/L (<34); BILIRUBIN,DIRECT 0.1 MG/DL (<0.4); CREATININE FOR GFR 0.77 MG/DL (0.55-1.30); GLOMERULAR FILTRATION RATE > 60.0 (>45); TOTAL PROTEIN 7.3 G/DL (5.7-8.2)
[2022-08-02] MEDS ORDERED: PRED10TA2 PO (12:48)
[2022-08-02 12:57] VITALS: BP 134/66
== END 2022-08-02 13:04 | disposition home or self-care (01) ==
LOC: M ED 07:33
DX: J44.9 Chronic obstructive pulmonary disease, unspecified (principal); B97.4 Respiratory syncytial virus as the cause of diseases classified elsewhere; I11.0 Hypertensive heart disease with heart failure; I50.9 Heart failure, unspecified; I25.2 Old myocardial infarction; K21.9 Gastro-esophageal reflux disease without esophagitis; F17.200 Nicotine dependence, unspecified, uncomplicated; Z88.2 Allergy status to sulfonamides; Z79.51 Long term (current) use of inhaled steroids; Z79.82 Long term (current) use of aspirin; Z79.890 Hormone replacement therapy; Z79.84 Long term (current) use of oral hypoglycemic drugs; Z79.899 Other long term (current) drug therapy
CPT/HCPCS: 36600; 71045; 80048; 80076; 82803; 83605; 83880; 84484; 85025; 87040; 87486; 87581; 87633; 87798; 93005; 93041; 94760; 96374; 99284; J2930

== ENCOUNTER → 2022-08-20 | Outpatient (CLI) | payer MEDICARE, MEDICAID ==
[~2022-08-20] MED LIST changes: +ASPI81CH33 PO; +B-122500 PO; +BENZ-18; +LEVO75TA4
[2022-08-20 10:29] LABS: BASO % 0.4 % (0.0-1.0); EOS # 0.2 10^3/uL (0.0-0.5); EOS % 1.9 % (0.0-3.0); HEMATOCRIT 43.5 % (36.0-47.0); HEMOGLOBIN 14.1 g/dl (12.0-15.5); LYMPH # 1.8 10^3/uL (1.5-5.0); LYMPH % 22.9 % (24.0-44.0); MEAN CORPUSCULAR HEMOGLOBIN 28.8 pg (27.0-33.0); MEAN CORPUSCULAR HGB CONC 32.4 g/dl (32.0-36.5); MONO # 0.7 10^3/uL (0.0-0.8); MONO % 8.3 % (2.0-8.0); NEUTROPHILS # 5.2 10^3/uL (1.5-8.5); NEUTROPHILS % 66.2 % (36.0-66.0); PLATELET COUNT, AUTOMATED 202 10^3/uL (150-450); RED BLOOD COUNT 4.89 10^6/uL (4.00-5.40); WHITE BLOOD COUNT 7.9 10^3/uL (4.0-10.0)
[2022-08-20 10:32] LABS: HEMOGLOBIN A1c 5.8 % (4.0-6.0)
[2022-08-20 10:46] LABS: MAGNESIUM LEVEL 1.6 MG/DL (1.8-2.4)
[2022-08-20 10:48] LABS: ALBUMIN 3.8 G/DL (3.2-5.2); ALKALINE PHOSPHATASE 90 U/L (46-116); ALT/SGPT 27 U/L (7.0-40); AST/SGOT 20 U/L (<34); BILIRUBIN,TOTAL 0.6 MG/DL (0.3-1.2); BLOOD UREA NITROGEN 15 MG/DL (9-23); CALCIUM LEVEL 8.4 MG/DL (8.3-10.6); CARBON DIOXIDE LEVEL 33 MMOL/L (20-31); CHLORIDE LEVEL 99 MMOL/L (98-107); CHOLESTEROL LEVEL 171 MG/DL (<200); CHOLESTEROL RISK RATIO 2.23 (<5); CREATININE FOR GFR 0.85 MG/DL (0.55-1.30); GLOMERULAR FILTRATION RATE > 60.0 (>45); GLUCOSE, FASTING 115 MG/DL (74-106); HDL CHOLESTEROL 76.6 MG/DL (>40); NON-HDL-C 94 MG/DL; POTASSIUM SERUM 3.5 MMOL/L (3.5-5.1); SODIUM LEVEL 140 MMOL/L (136-145); TOTAL PROTEIN 6.9 G/DL (5.7-8.2); TRIGLYCERIDES LEVEL 182 MG/DL (<150)
[2022-08-20 10:49] LABS: FREE T4 1.47 NG/DL (0.89-1.76); THYROID STIMULATING HORMONE 2.872 uIU/ML (0.55-4.78)
== END ==
LOC: M LAB 09:35
PROVIDERS: ATTEND Nurse Practitioner Family
DX: R53.83 Other fatigue (principal)

== ENCOUNTER → 2022-08-20 | Outpatient (CLI) | payer MEDICARE | LOC: M RAD 09:31 | PROVIDERS: ATTEND Nurse Practitioner Adult Health | DX: J44.9 Chronic obstructive pulmonary disease, unspecified (principal) ==

== ENCOUNTER → 2022-10-20 | Outpatient (REF) | payer OTHER, MEDICARE, MEDICAID | LOC: M LAB REF 13:02 | PROVIDERS: ATTEND Nurse Practitioner Adult Health | DX: J44.9 Chronic obstructive pulmonary disease, unspecified (principal) ==

== ENCOUNTER 2022-10-31 12:12 | Observation (INO) | payer MEDICAID, MEDICARE, OTHER ==
[~2022-10-31] VITALS: Ht 157.5 cm; Wt 71.3 kg
[~2022-10-31 12:12] MED LIST changes: -LEVO75TA4; +LEVO75TA4 PO
[2022-10-31] MEDS ORDERED: methylPREDNISolone 125MG 2ML VIAL IV ONE (12:45)
[2022-10-31] MEDS ORDERED: COMBIVENT RESPIMAT 100-20MCG INHALER 4GM INH STA (12:48)
[2022-10-31 13:25] LABS: ABG HCO3 31.9 MEQ/L (22.0-26.0); ABG O2 SATURATION 98.3 % (95.0-99.0); ABG PARTIAL PRESSURE O2 111.1 mmHg (75.0-100.0); ABG STANDARD HCO3 30.9 MEQ/L (22.0-26.0); ABG TOTAL CO2 33.3 MEQ/L (23.0-31.0); ABG pH (ARTERIAL) 7.459 UNITS (7.350-7.450)
[2022-10-31 13:29] LABS: BASO % 0.2 % (0.0-1.0); EOS # 0.1 10^3/uL (0.0-0.5); EOS % 0.6 % (0.0-3.0); HEMATOCRIT 44.4 % (36.0-47.0); HEMOGLOBIN 14.3 g/dl (12.0-15.5); LYMPH # 1.3 10^3/uL (1.5-5.0); LYMPH % 12.9 % (24.0-44.0); MEAN CORPUSCULAR HEMOGLOBIN 29.1 pg (27.0-33.0); MEAN CORPUSCULAR HGB CONC 32.2 g/dl (32.0-36.5); MEAN CORPUSCULAR VOLUME 90.2 fl (80.0-96.0); MONO # 0.5 10^3/uL (0.0-0.8); MONO % 4.6 % (2.0-8.0); NEUTROPHILS # 8.2 10^3/uL (1.5-8.5); NEUTROPHILS % 81.1 % (36.0-66.0); PLATELET COUNT, AUTOMATED 264 10^3/uL (150-450); RED BLOOD COUNT 4.92 10^6/uL (4.00-5.40); WHITE BLOOD COUNT 10.1 10^3/uL (4.0-10.0)
[2022-10-31 13:59] LABS: CK-MB VALUE MASS 1.3 NG/ML (<3.6)
[2022-10-31 14:01] LABS: CPK CREATINE PHOSPHOKINASE 111 U/L (34-145); MB/CK RELATIVE INDEX 1.17 (< OR =4)
[2022-10-31 14:02] LABS: ALBUMIN 3.8 G/DL (3.2-5.2); ALKALINE PHOSPHATASE 95 U/L (46-116); ALT/SGPT 27 U/L (7.0-40); AST/SGOT 21 U/L (<34); BILIRUBIN,DIRECT 0.1 MG/DL (<0.4); BILIRUBIN,TOTAL 0.4 MG/DL (0.3-1.2); BLOOD UREA NITROGEN 21 MG/DL (9-23); CALCIUM LEVEL 7.8 MG/DL (8.3-10.6); CARBON DIOXIDE LEVEL 36 MMOL/L (20-31); CHLORIDE LEVEL 100 MMOL/L (98-107); CREATININE FOR GFR 0.91 MG/DL (0.55-1.30); GLOMERULAR FILTRATION RATE > 60.0 (>45); GLUCOSE, FASTING 144 MG/DL (74-106); POTASSIUM SERUM 3.5 MMOL/L (3.5-5.1); SODIUM LEVEL 143 MMOL/L (136-145); TOTAL PROTEIN 6.7 G/DL (5.7-8.2)
[2022-10-31 14:03] LABS: THYROXINE (T4) 10.6 UG/DL (4.5-10.9)
[2022-10-31 14:04] LABS: THYROID STIMULATING HORMONE 1.253 uIU/ML (0.55-4.78)
[2022-10-31 15:06] LABS: CK-MB VALUE MASS < 1.0 NG/ML (<3.6)
[2022-10-31 15:07] LABS: CPK CREATINE PHOSPHOKINASE 126 U/L (34-145); MB/CK RELATIVE INDEX 0.79 (< OR =4)
[2022-10-31] MEDS ORDERED: ALBUTEROL 90 MCG/ACT 8GM HFA INHALER INH PRN (16:25)
[2022-10-31] MEDS ORDERED: LevoFLOXacin 500 MG TABLET PO ONE (16:25)
[2022-10-31] MEDS ORDERED: GLUCAGON INJ 1MG VIAL SC PRN (16:25)
[2022-10-31] MEDS ORDERED: GLUCOSE 4GM CHEW TABLET PO PRN (16:25)
[2022-10-31] MEDS ORDERED: DEXTROSE 50% 50ML SYRINGE IV PRN (16:25)
[2022-10-31] MEDS ORDERED: ACETAMINOPHEN TAB 650MG DOSE (2X325MG) PO PRN (16:25)
[2022-10-31] MEDS ORDERED: ISOVUE-370 76% 100ML VIAL As Ordered ONE ×2 (16:37→17:52)
[2022-10-31] MEDS ORDERED: NICOTINE 21MG/24HR 1 EA TRANSDERMAL TD ONE (16:40)
[2022-10-31] MEDS: COMBIVENT RESPIMAT 100-20MCG INHALER 4GM INH SCH ×2 (16:54→19:28)
[2022-10-31] MEDS ORDERED: TORS20TA2 PO (17:07)
[2022-10-31] MEDS ORDERED: PRED10TA2 PO (17:07)
[2022-10-31] MEDS ORDERED: SPIR1AER INH (17:07)
[2022-10-31] MEDS ORDERED: MUCI600T31 PO (17:07)
[2022-10-31] MEDS ORDERED: HOME MED LIST COMPLETE! XX SCH (17:10)
[2022-10-31 17:15] VITALS: BP 115/60
[2022-10-31] MEDS ORDERED: BREO1INH3 INH (17:25)
[2022-10-31] MEDS: INSULIN LISPRO (NovoLOG) PER UNIT SC SCH (17:30)
[2022-10-31 17:52] LABS: HEMATOCRIT 42.7 % (36.0-47.0); HEMOGLOBIN 13.8 g/dl (12.0-15.5); MEAN CORPUSCULAR HEMOGLOBIN 29.1 pg (27.0-33.0); MEAN CORPUSCULAR HGB CONC 32.3 g/dl (32.0-36.5); MEAN CORPUSCULAR VOLUME 90.1 fl (80.0-96.0); PLATELET COUNT, AUTOMATED 248 10^3/uL (150-450); RED BLOOD COUNT 4.74 10^6/uL (4.00-5.40); WHITE BLOOD COUNT 10.7 10^3/uL (4.0-10.0)
[2022-10-31 18:15] LABS: INR 0.89; PROTHROMBIN TIME 12.2 SECONDS (12.5-14.5)
[2022-10-31 18:16] LABS: PARTIAL THROMBOPLASTIN TIME 26.9 SECONDS (24.8-34.2)
[2022-10-31 18:27] LABS: ALBUMIN 3.8 G/DL (3.2-5.2); ALKALINE PHOSPHATASE 97 U/L (46-116); ALT/SGPT 26 U/L (7.0-40); AST/SGOT 18 U/L (<34); BILIRUBIN,TOTAL 0.4 MG/DL (0.3-1.2); BLOOD UREA NITROGEN 24 MG/DL (9-23); CALCIUM LEVEL 7.9 MG/DL (8.3-10.6); CARBON DIOXIDE LEVEL 30 MMOL/L (20-31); CHLORIDE LEVEL 100 MMOL/L (98-107); CREATININE FOR GFR 0.94 MG/DL (0.55-1.30); GLOMERULAR FILTRATION RATE > 60.0 (>45); GLUCOSE, FASTING 148 MG/DL (74-106); POTASSIUM SERUM 4.1 MMOL/L (3.5-5.1); SODIUM LEVEL 141 MMOL/L (136-145); TOTAL PROTEIN 6.5 G/DL (5.7-8.2)
[2022-10-31] MEDS: POTASSIUM CHLORIDE 10MEQ SR TABLET PO SCH (20:11)
[2022-10-31] MEDS: guaiFENesin ER 600 MG TAB PO SCH (20:11)
[2022-10-31] MEDS: methylPREDNISolone 125MG 2ML VIAL IV SCH (20:12)
[2022-10-31] MEDS ORDERED: FAMOTIDINE 20 MG TAB PO SCH (21:00)
[2022-10-31] MEDS ORDERED: POTASSIUM CHLORIDE 10MEQ SR TABLET PO SCH (21:00)
[2022-10-31] MEDS ORDERED: ATORVASTATIN 20 MG TAB PO SCH (21:00)
[2022-10-31] MEDS ORDERED: INSULIN LISPRO (NovoLOG) PER UNIT SC SCH (21:00)
[2022-10-31 22:00] VITALS: BP 120/68
[2022-11-01] MEDS: methylPREDNISolone 125MG 2ML VIAL IV SCH ×2 (05:36→12:47)
[2022-11-01 06:00] VITALS: BP 116/66
[2022-11-01] MEDS ORDERED: LEVOTHYROXINE 75MCG TABLET (0.075MG) PO SCH (06:00)
[2022-11-01] MEDS ORDERED: LevoFLOXacin 250 MG TABLET PO SCH (06:00)
[2022-11-01] MEDS: COMBIVENT RESPIMAT 100-20MCG INHALER 4GM INH SCH ×2 (07:44→11:22)
[2022-11-01] MEDS ORDERED: ADVAIR HFA 230/21MCG INHALER INH SCH (08:00)
[2022-11-01] MEDS ORDERED: TIOTROPIUM INHALER/CAPSULE (SPIRIVA) INH SCH (08:00)
[2022-11-01] MEDS: INSULIN LISPRO (NovoLOG) PER UNIT SC SCH ×2 (08:24→12:48)
[2022-11-01] MEDS: guaiFENesin ER 600 MG TAB PO SCH (08:25)
[2022-11-01] MEDS: POTASSIUM CHLORIDE 10MEQ SR TABLET PO SCH (08:27)
[2022-11-01] MEDS ORDERED: PARoxetine 10MG TABLET PO SCH (09:00)
[2022-11-01] MEDS ORDERED: CETIRIZINE (ZyrTEC) 10 MG TAB PO SCH (09:00)
[2022-11-01] MEDS ORDERED: ASPIRIN 81MG CHEW TABLET PO SCH (09:00)
[2022-11-01] MEDS ORDERED: ENOXAPARIN 40MG/0.4ML SYRINGE (J1650 PER 10MG) SC SCH (09:00)
[2022-11-01] MEDS ORDERED: TORSEMIDE 20 MG TAB PO SCH (09:00)
[2022-11-01] MEDS ORDERED: LEVO1TAB39 PO (10:42)
[2022-11-01] MEDS ORDERED: PRED20TA PO (10:42)
[2022-11-01] MEDS ORDERED: VENTAER INH (10:53)
[2022-11-01] MEDS ORDERED: SPIR1AER INH (10:53)
[2022-11-01] MEDS ORDERED: BREO1INH3 INH (10:53)
[2022-11-01] MEDS ORDERED: LevoFLOXacin 250 MG TABLET PO ONE (11:00)
== END 2022-11-01 13:05 | disposition home or self-care (01) ==
LOC: M ED 12:12 → M ED INP 16:24 → ENRESERV 16:52 → M MSPAV 17:14
PROVIDERS: ADMIT Internal Medicine; ATTEND General Practice
DX: J44.1 Chronic obstructive pulmonary disease with (acute) exacerbation (principal); B97.29 Other coronavirus as the cause of diseases classified elsewhere; J96.21 Acute and chronic respiratory failure with hypoxia; I25.10 Atherosclerotic heart disease of native coronary artery without angina pectoris; I25.2 Old myocardial infarction; I11.0 Hypertensive heart disease with heart failure; I50.20 Unspecified systolic (congestive) heart failure; E11.9 Type 2 diabetes mellitus without complications; E78.5 Hyperlipidemia, unspecified; E03.9 Hypothyroidism, unspecified; K21.9 Gastro-esophageal reflux disease without esophagitis; F32.A Depression, unspecified; R05.8 Other specified cough; R07.1 Chest pain on breathing; Z99.81 Dependence on supplemental oxygen; Z88.2 Allergy status to sulfonamides; Z79.899 Other long term (current) drug therapy; Z79.82 Long term (current) use of aspirin; Z79.2 Long term (current) use of antibiotics; Z79.890 Hormone replacement therapy; Z79.52 Long term (current) use of systemic steroids; F17.210 Nicotine dependence, cigarettes, uncomplicated; Z80.1 Family history of malignant neoplasm of trachea, bronchus and lung
CPT/HCPCS: 36415; 36600; 71045; 71275; 80048; 80053; 80076; 82550; 82553; 82803; 83605; 83880; 84145; 84436; 84443; 84484; 85025; 85027; 85610; 85730; 87040; 87486; 87581; 87633; 87798; 93005; 93041; 94640; 94760; 96372; 96374; 96376; 97162; 97530; 99285; G0378; J1650; J1815; Q9967

== ENCOUNTER → 2022-11-08 | Outpatient (CLI) | payer OTHER ==
[~2022-11-08] MED LIST changes: +BREO1INH3 INH; +LEVO1TAB39 PO; +PRED20TA PO; +SPIR1AER INH
[2022-11-08 14:48] LABS: HEMATOCRIT 44.2 % (36.0-47.0); HEMOGLOBIN 14.5 g/dl (12.0-15.5); MEAN CORPUSCULAR HEMOGLOBIN 29.3 pg (27.0-33.0); MEAN CORPUSCULAR HGB CONC 32.8 g/dl (32.0-36.5); MEAN CORPUSCULAR VOLUME 89.3 fl (80.0-96.0); PLATELET COUNT, AUTOMATED 235 10^3/uL (150-450); RED BLOOD COUNT 4.95 10^6/uL (4.00-5.40)
[2022-11-08 15:25] LABS: ALBUMIN 3.7 G/DL (3.2-5.2); ALKALINE PHOSPHATASE 92 U/L (46-116); ALT/SGPT 24 U/L (7.0-40); AST/SGOT 16 U/L (<34); BILIRUBIN,TOTAL 0.7 MG/DL (0.3-1.2); BLOOD UREA NITROGEN 19 MG/DL (9-23); CALCIUM LEVEL 7.6 MG/DL (8.3-10.6); CARBON DIOXIDE LEVEL 34 MMOL/L (20-31); CHLORIDE LEVEL 98 MMOL/L (98-107); CREATININE FOR GFR 0.81 MG/DL (0.55-1.30); GLOMERULAR FILTRATION RATE > 60.0 (>45); GLUCOSE, FASTING 89 MG/DL (74-106); POTASSIUM SERUM 3.6 MMOL/L (3.5-5.1); SODIUM LEVEL 143 MMOL/L (136-145); TOTAL PROTEIN 6.5 G/DL (5.7-8.2)
== END ==
LOC: M RAD 14:03
PROVIDERS: ATTEND Registered Nurse
DX: R05.9 Cough, unspecified (principal)

== ENCOUNTER → 2022-12-19 | Outpatient (CLI) | payer MEDICARE, OTHER ==
[~2022-12-19] MED LIST changes: +FLUT50SP17; -FLUTISP
== END ==
LOC: M WHC 09:17
PROVIDERS: ATTEND Advanced Practice Midwife
DX: Z12.31 Encounter for screening mammogram for malignant neoplasm of breast (principal); Z12.4 Encounter for screening for malignant neoplasm of cervix; R87.610 Atypical squamous cells of undetermined significance on cytologic smear of cervix (ASC-US); R87.810 Cervical high risk human papillomavirus (HPV) DNA test positive
CPT/HCPCS: 77063; 77067; G0123

== ENCOUNTER → 2022-12-19 | Outpatient (REF) | payer MEDICARE, OTHER | LOC: M PLALAB 09:19 | PROVIDERS: ATTEND Advanced Practice Midwife | DX: Z12.4 Encounter for screening for malignant neoplasm of cervix (principal); R87.610 Atypical squamous cells of undetermined significance on cytologic smear of cervix (ASC-US); R87.810 Cervical high risk human papillomavirus (HPV) DNA test positive ==

== ENCOUNTER → 2023-02-14 | Outpatient (CLI) | payer OTHER, MEDICAID ==
[2023-02-14 14:56] LABS: HEMATOCRIT 39.5 % (36.0-47.0); HEMOGLOBIN 12.8 g/dl (12.0-15.5); MEAN CORPUSCULAR HEMOGLOBIN 28.9 pg (27.0-33.0); MEAN CORPUSCULAR HGB CONC 32.4 g/dl (32.0-36.5); MEAN CORPUSCULAR VOLUME 89.2 fl (80.0-96.0); PLATELET COUNT, AUTOMATED 214 10^3/uL (150-450); RED BLOOD COUNT 4.43 10^6/uL (4.00-5.40); WHITE BLOOD COUNT 6.2 10^3/uL (4.0-10.0)
[2023-02-14 15:31] LABS: BLOOD UREA NITROGEN 17 MG/DL (9-23); CALCIUM LEVEL 8.4 MG/DL (8.3-10.6); CARBON DIOXIDE LEVEL 34 MMOL/L (20-31); CHLORIDE LEVEL 103 MMOL/L (98-107); CREATININE FOR GFR 0.92 MG/DL (0.55-1.30); GLOMERULAR FILTRATION RATE > 60.0 (>45); GLUCOSE, FASTING 83 MG/DL (74-106); POTASSIUM SERUM 4.2 MMOL/L (3.5-5.1); SODIUM LEVEL 143 MMOL/L (136-145)
[2023-02-14 15:35] LABS: THYROID STIMULATING HORMONE 3.713 uIU/ML (0.55-4.78)
== END ==
LOC: M LAB 14:21
PROVIDERS: ATTEND Nurse Practitioner Family
DX: R00.2 Palpitations (principal)

== ENCOUNTER → 2023-10-02 | Outpatient (CLI) | payer OTHER, MEDICAID ==
[~2023-10-02] MED LIST changes: -FLUT50SP17; +FLUTISP
[2023-10-02 12:26] LABS: HEMATOCRIT 42.1 % (36.0-47.0); HEMOGLOBIN 13.4 g/dl (12.0-15.5); MEAN CORPUSCULAR HEMOGLOBIN 29.3 pg (27.0-33.0); MEAN CORPUSCULAR HGB CONC 31.8 g/dl (32.0-36.5); MEAN CORPUSCULAR VOLUME 92.1 fl (80.0-96.0); PLATELET COUNT, AUTOMATED 256 10^3/uL (150-450); RED BLOOD COUNT 4.57 10^6/uL (4.00-5.40); WHITE BLOOD COUNT 9.8 10^3/uL (4.0-10.0)
[2023-10-02 12:43] LABS: HEMOGLOBIN A1c 5.8 % (4.0-6.0)
[2023-10-02 12:59] LABS: ALBUMIN 3.8 G/DL (3.2-5.2); ALKALINE PHOSPHATASE 79 U/L (46-116); ALT/SGPT 22 U/L (7.0-40); AST/SGOT 13 U/L (<34); BILIRUBIN,TOTAL 0.4 MG/DL (0.3-1.2); BLOOD UREA NITROGEN 19 MG/DL (9-23); CALCIUM LEVEL 8.6 MG/DL (8.3-10.6); CARBON DIOXIDE LEVEL 33 MMOL/L (20-31); CHLORIDE LEVEL 104 MMOL/L (98-107); CHOLESTEROL LEVEL 165 MG/DL (<200); CHOLESTEROL RISK RATIO 1.97 (<5); CREATININE FOR GFR 0.84 MG/DL (0.55-1.30); GLOMERULAR FILTRATION RATE > 60.0 (>45); GLUCOSE, FASTING 90 MG/DL (74-106); HDL CHOLESTEROL 83.6 MG/DL (>40); NON-HDL-C 81.4 MG/DL; POTASSIUM SERUM 4.1 MMOL/L (3.5-5.1); SODIUM LEVEL 142 MMOL/L (136-145); TRIGLYCERIDES LEVEL 157 MG/DL (<150)
[2023-10-02 13:00] LABS: FREE T4 1.26 NG/DL (0.89-1.76); THYROID STIMULATING HORMONE 2.586 uIU/ML (0.55-4.78)
== END ==
LOC: M RAD 10:54
PROVIDERS: ATTEND Registered Nurse
DX: J06.9 Acute upper respiratory infection, unspecified (principal); E03.9 Hypothyroidism, unspecified; E11.9 Type 2 diabetes mellitus without complications; Z79.899 Other long term (current) drug therapy

== ENCOUNTER → 2023-12-04 | Outpatient (CLI) | payer OTHER, MEDICAID | LOC: M RAD 14:55 | PROVIDERS: ATTEND Nurse Practitioner Adult Health | DX: Z87.891 Personal history of nicotine dependence (principal) ==

== ENCOUNTER → 2024-01-15 | Outpatient (CLI) | payer OTHER, MEDICAID ==
[2024-01-15 15:19] LABS: ALBUMIN 3.8 G/DL (3.2-5.2); ALKALINE PHOSPHATASE 86 U/L (46-116); ALT/SGPT 18 U/L (7.0-40); AST/SGOT 12 U/L (<34); BILIRUBIN,TOTAL 0.3 MG/DL (0.3-1.2); BLOOD UREA NITROGEN 20 MG/DL (9-23); CALCIUM LEVEL 8.7 MG/DL (8.3-10.6); CARBON DIOXIDE LEVEL 33 MMOL/L (20-31); CHLORIDE LEVEL 103 MMOL/L (98-107); CHOLESTEROL LEVEL 158 MG/DL (<200); CHOLESTEROL RISK RATIO 2.66 (<5); GLOMERULAR FILTRATION RATE > 60.0 (>45); GLUCOSE, FASTING 94 MG/DL (74-106); HDL CHOLESTEROL 59.3 MG/DL (>40); LDL CHOLESTEROL 55.3 MG/DL (<100); NON-HDL-C 98.7 MG/DL; SODIUM LEVEL 144 MMOL/L (136-145); TOTAL PROTEIN 6.4 G/DL (5.7-8.2); TRIGLYCERIDES LEVEL 217 MG/DL (<150)
[2024-01-15 15:21] LABS: FREE T4 1.23 NG/DL (0.89-1.76); THYROID STIMULATING HORMONE 1.137 uIU/ML (0.55-4.78)
[2024-01-15 15:30] LABS: HEMOGLOBIN A1c 5.4 % (4.0-6.0)
== END ==
LOC: M LAB 13:58
PROVIDERS: ATTEND Registered Nurse
DX: E11.9 Type 2 diabetes mellitus without complications (principal)

== ENCOUNTER → 2024-02-22 | Outpatient (CLI) | payer OTHER, MEDICAID ==
[2024-02-22 10:30] LABS: HEMATOCRIT 42.6 % (36.0-47.0); HEMOGLOBIN 13.7 g/dl (12.0-15.5); MEAN CORPUSCULAR HEMOGLOBIN 29.5 pg (27.0-33.0); MEAN CORPUSCULAR HGB CONC 32.2 g/dl (32.0-36.5); MEAN CORPUSCULAR VOLUME 91.6 fl (80.0-96.0); PLATELET COUNT, AUTOMATED 190 10^3/uL (150-450); RED BLOOD COUNT 4.65 10^6/uL (4.00-5.40); WHITE BLOOD COUNT 7.1 10^3/uL (4.0-10.0)
[2024-02-22 10:52] LABS: ALKALINE PHOSPHATASE 85 U/L (46-116); ALT/SGPT 19 U/L (7.0-40); AST/SGOT 12 U/L (<34); BILIRUBIN,TOTAL 0.5 MG/DL (0.3-1.2); BLOOD UREA NITROGEN 16 MG/DL (9-23); CALCIUM LEVEL 8.9 MG/DL (8.3-10.6); CARBON DIOXIDE LEVEL 34 MMOL/L (20-31); CHLORIDE LEVEL 103 MMOL/L (98-107); CREATININE FOR GFR 0.87 MG/DL (0.55-1.30); GLOMERULAR FILTRATION RATE > 60.0 (>45); GLUCOSE, FASTING 134 MG/DL (74-106); POTASSIUM SERUM 4.1 MMOL/L (3.5-5.1); SODIUM LEVEL 141 MMOL/L (136-145); TOTAL PROTEIN 6.7 G/DL (5.7-8.2)
[2024-02-22 10:55] LABS: THYROID STIMULATING HORMONE 0.841 uIU/ML (0.55-4.78)
== END ==
LOC: M LAB 09:37
PROVIDERS: ATTEND Nurse Practitioner Family
DX: I25.10 Atherosclerotic heart disease of native coronary artery without angina pectoris (principal); E07.9 Disorder of thyroid, unspecified

== ENCOUNTER → 2024-06-10 | Outpatient (CLI) | payer OTHER, MEDICAID | LOC: M RAD 16:13 | PROVIDERS: ATTEND Nurse Practitioner Adult Health | DX: R91.8 Other nonspecific abnormal finding of lung field (principal) ==

== ENCOUNTER → 2024-06-26 | Outpatient (REF) | payer OTHER, MEDICAID | LOC: M LAB REF 09:50 | PROVIDERS: ATTEND Nurse Practitioner Adult Health | DX: J44.9 Chronic obstructive pulmonary disease, unspecified (principal) ==

== ENCOUNTER → 2024-07-26 | Outpatient (CLI) | payer OTHER, MEDICAID | LOC: M WHC 10:30 | PROVIDERS: ATTEND Advanced Practice Midwife | DX: Z12.31 Encounter for screening mammogram for malignant neoplasm of breast (principal); R92.323 Mammographic fibroglandular density, bilateral breasts ==

== ENCOUNTER → 2024-07-26 | Outpatient (REF) | payer MEDICARE, OTHER ==
[2024-07-30 14:06] LABS: HPV APTIMA Not Detected (Not Detected)
== END ==
LOC: M SFHCWAGY 13:24
PROVIDERS: ATTEND Advanced Practice Midwife
DX: Z12.4 Encounter for screening for malignant neoplasm of cervix (principal); Z77.9 Other contact with and (suspected) exposures hazardous to health
CPT/HCPCS: 87624; G0123

== ENCOUNTER 2024-08-08 12:46 | Emergency (ER) | payer OTHER ==
[~2024-08-08] VITALS: Ht 157.5 cm; Wt 81.8 kg
[~2024-08-08 12:46] MED LIST changes: -ADV250INH INH; +ADVA1AER9 INH
[2024-08-08 14:24] LABS: BASO % 0.2 % (0.0-1.0); EOS # 0.1 10^3/uL (0.0-0.5); EOS % 0.8 % (0.0-3.0); HEMATOCRIT 37.5 % (36.0-47.0); LYMPH # 1.3 10^3/uL (1.5-5.0); LYMPH % 14.2 % (24.0-44.0); MEAN CORPUSCULAR HEMOGLOBIN 29.3 pg (27.0-33.0); MEAN CORPUSCULAR VOLUME 91.5 fl (80.0-96.0); MONO # 0.8 10^3/uL (0.0-0.8); MONO % 8.8 % (2.0-8.0); NEUTROPHILS # 6.8 10^3/uL (1.5-8.5); NEUTROPHILS % 75.8 % (36.0-66.0); PLATELET COUNT, AUTOMATED 209 10^3/uL (150-450)
[2024-08-08 14:40] LABS: INR 0.85; PROTHROMBIN TIME 11.9 SECONDS (12.5-14.5)
[2024-08-08 14:56] LABS: ALBUMIN 3.2 G/DL (3.2-5.2); ALKALINE PHOSPHATASE 89 U/L (35-104); ALT/SGPT 16 U/L (7.0-40); AST/SGOT 9 U/L (<34); BILIRUBIN,DIRECT 0.1 MG/DL (<0.4); BILIRUBIN,TOTAL 0.3 MG/DL (0.3-1.2); BLOOD UREA NITROGEN 13 MG/DL (9-23); CALCIUM LEVEL 8.4 MG/DL (8.3-10.6); CARBON DIOXIDE LEVEL 32 MMOL/L (20-31); CHLORIDE LEVEL 100 MMOL/L (98-107); CREATININE FOR GFR 0.83 MG/DL (0.55-1.30); GLOMERULAR FILTRATION RATE > 60.0 (>45); GLUCOSE, FASTING 182 MG/DL (74-106); POTASSIUM SERUM 3.8 MMOL/L (3.5-5.1); SODIUM LEVEL 141 MMOL/L (136-145); TOTAL PROTEIN 6.7 G/DL (5.7-8.2)
[2024-08-08 14:58] LABS: THYROXINE (T4) 7.6 UG/DL (4.5-10.9)
[2024-08-08 14:59] LABS: THYROID STIMULATING HORMONE 4.167 uIU/ML (0.55-4.78)
[2024-08-08] MEDS: ACETAMINOPHEN *IV* 1,000 MG in IV 1 EA IV ONE (15:02)
[2024-08-08] MEDS: KETOROLAC 30 MG/ML 1ML VIAL IV ONE (15:02)
[2024-08-08 15:03] LABS: PROCALCITONIN 0.04 ng/ml
[2024-08-08] MEDS ORDERED: ISOVUE-370 76% 100ML VIAL As Ordered ONE (15:20)
[2024-08-08] MEDS ORDERED: BENZ200C70 PO (16:19)
[2024-08-08 16:23] VITALS: O2SAT 96
[2024-08-08 16:26] VITALS: BP 129/78; TEMP 99.3; O2SAT 96
== END 2024-08-08 17:03 | disposition home or self-care (01) ==
LOC: M ED 12:46
DX: J44.9 Chronic obstructive pulmonary disease, unspecified (principal); R06.02 Shortness of breath; R06.2 Wheezing; M54.50 Low back pain, unspecified; F17.210 Nicotine dependence, cigarettes, uncomplicated; Z88.2 Allergy status to sulfonamides; Z79.1 Long term (current) use of non-steroidal anti-inflammatories (NSAID); Z79.51 Long term (current) use of inhaled steroids; Z79.84 Long term (current) use of oral hypoglycemic drugs; Z79.52 Long term (current) use of systemic steroids; Z79.899 Other long term (current) drug therapy
CPT/HCPCS: 71045; 71260; 80048; 80076; 83605; 83880; 84145; 84436; 84443; 85025; 85610; 87040; 87070; 87077; 87185; 87186; 87205; 87486; 87581; 87633; 87798; 93005; 93041; 94760; 96365; 99285; J0131; J1885; Q9967

== ENCOUNTER → 2024-08-31 | Outpatient (REF) | payer OTHER ==
[~2024-08-31] MED LIST changes: +BENZ200C70 PO
== END ==
LOC: M LAB REF 11:50
PROVIDERS: ATTEND Nurse Practitioner Adult Health
DX: J44.9 Chronic obstructive pulmonary disease, unspecified (principal)

== ENCOUNTER 2024-10-02 13:23 | Emergency (ER) | payer OTHER ==
[~2024-10-02] VITALS: Ht 157.5 cm; Wt 81.3 kg
[2024-10-02] MEDS ORDERED: COMBAER6 (13:40)
[2024-10-02] MEDS ORDERED: FLUT1BLS8 (13:40)
[2024-10-02] MEDS: methylPREDNISolone 125MG 2ML VIAL IV ONE (13:55)
[2024-10-02 14:05] LABS: VENOUS BASE EXCESS 4.2 (-2.0-2.0); VENOUS HCO3 31.6 MMOL/L (23.0-27.0); VENOUS O2 SATURATION 74.1 % (60.0-80.0); VENOUS PARTIAL PRESSURE CO2 59.9 mmHg (38.0-50.0); VENOUS PARTIAL PRESSURE O2 40.5 mmHg (30.0-50.0); VENOUS STANDARD HCO3 27.7 MMOL/L; VENOUS TOTAL CO2 33.4 MMOL/L (24.0-28.0)
[2024-10-02 14:09] LABS: BASO % 0.3 % (0.0-1.0); EOS # 0.1 10^3/uL (0.0-0.5); EOS % 0.9 % (0.0-3.0); HEMATOCRIT 39.4 % (36.0-47.0); HEMOGLOBIN 12.5 g/dl (12.0-15.5); LYMPH # 2.1 10^3/uL (1.5-5.0); LYMPH % 13.8 % (24.0-44.0); MEAN CORPUSCULAR HGB CONC 31.7 g/dl (32.0-36.5); MEAN CORPUSCULAR VOLUME 91.4 fl (80.0-96.0); MONO # 1.1 10^3/uL (0.0-0.8); NEUTROPHILS # 11.8 10^3/uL (1.5-8.5); NEUTROPHILS % 77.4 % (36.0-66.0); PLATELET COUNT, AUTOMATED 229 10^3/uL (150-450); RED BLOOD COUNT 4.31 10^6/uL (4.00-5.40); WHITE BLOOD COUNT 15.2 10^3/uL (4.0-10.0)
[2024-10-02 14:20] LABS: ALBUMIN 3.7 G/DL (3.2-5.2); ALKALINE PHOSPHATASE 99 U/L (35-104); ALT/SGPT 15 U/L (7.0-40); AST/SGOT 11 U/L (<34); BILIRUBIN,DIRECT 0.1 MG/DL (<0.4); BILIRUBIN,TOTAL 0.4 MG/DL (0.3-1.2); BLOOD UREA NITROGEN 15 MG/DL (9-23); CALCIUM LEVEL 8.7 MG/DL (8.3-10.6); CARBON DIOXIDE LEVEL 35 MMOL/L (20-31); CHLORIDE LEVEL 102 MMOL/L (98-107); CREATININE FOR GFR 0.76 MG/DL (0.55-1.30); GLOMERULAR FILTRATION RATE > 60.0 (>45); GLUCOSE, FASTING 135 MG/DL (74-106); POTASSIUM SERUM 3.9 MMOL/L (3.5-5.1); SODIUM LEVEL 146 MMOL/L (136-145); TOTAL PROTEIN 7.2 G/DL (5.7-8.2)
[2024-10-02 14:23] LABS: THYROID STIMULATING HORMONE 3.003 uIU/ML (0.55-4.78)
[2024-10-02] MEDS ORDERED: ISOVUE-370 76% 100ML VIAL As Ordered ONE (15:55)
[2024-10-02] MEDS ORDERED: PRED20TA PO (17:08)
[2024-10-02] MEDS ORDERED: ZITHTAB PO (17:08)
[2024-10-02] MEDS ORDERED: CEFD300C PO (17:08)
[2024-10-02 17:30] VITALS: BP 107/56; TEMP 99.5; O2SAT 98
== END 2024-10-02 17:35 | disposition home or self-care (01) ==
LOC: M ED 13:23 → EDBD 13:23 → M ED 17:35
DX: J44.1 Chronic obstructive pulmonary disease with (acute) exacerbation (principal); R00.0 Tachycardia, unspecified; I25.119 Atherosclerotic heart disease of native coronary artery with unspecified angina pectoris; I50.22 Chronic systolic (congestive) heart failure; I11.0 Hypertensive heart disease with heart failure; E78.5 Hyperlipidemia, unspecified; E11.9 Type 2 diabetes mellitus without complications; I25.2 Old myocardial infarction; F17.210 Nicotine dependence, cigarettes, uncomplicated; Z88.2 Allergy status to sulfonamides; Z79.1 Long term (current) use of non-steroidal anti-inflammatories (NSAID); Z79.51 Long term (current) use of inhaled steroids; Z79.2 Long term (current) use of antibiotics; Z79.52 Long term (current) use of systemic steroids; Z79.899 Other long term (current) drug therapy
CPT/HCPCS: 71045; 71275; 80048; 80076; 82803; 83605; 83880; 84443; 85025; 87040; 87486; 87581; 87633; 87798; 93005; 93041; 94760; 96374; 99285; J2919; Q9967

== ENCOUNTER → 2024-10-28 | Outpatient (CLI) | payer OTHER ==
[~2024-10-28] MED LIST changes: +CEFD300C PO; +COMBAER6; +FLUT1BLS8; +ZITHTAB PO
[2024-10-28 17:10] LABS: ABG BASE EXCESS 2.5 (-2.0-2.0); ABG HCO3 27.4 MMOL/L (22.0-26.0); ABG O2 SATURATION 95.2 % (95.0-99.0); ABG PARTIAL PRESSURE CO2 43.5 mmHg (35.0-45.0); ABG PARTIAL PRESSURE O2 79.5 mmHg (75.0-100.0); ABG STANDARD HCO3 26.6 MMOL/L. (22.0-26.0); ABG TOTAL CO2 28.7 MMOL/L (23.0-31.0); ABG pH (ARTERIAL) 7.417 UNITS (7.350-7.450)
== END ==
LOC: M LAB 16:35
PROVIDERS: ATTEND Nurse Practitioner Adult Health
DX: J44.9 Chronic obstructive pulmonary disease, unspecified (principal)

== ENCOUNTER → 2025-01-07 | Outpatient (REF) | payer OTHER ==
[2025-01-07 15:40] LABS: HEMATOCRIT 42.3 % (36.0-47.0); MEAN CORPUSCULAR HEMOGLOBIN 28.8 pg (27.0-33.0); MEAN CORPUSCULAR HGB CONC 30.7 g/dl (32.0-36.5); MEAN CORPUSCULAR VOLUME 93.6 fl (80.0-96.0); PLATELET COUNT, AUTOMATED 242 10^3/uL (150-450); RED BLOOD COUNT 4.52 10^6/uL (4.00-5.40)
[2025-01-07 16:02] LABS: BILIRUBIN,TOTAL 0.3 MG/DL (0.3-1.2); CALCIUM LEVEL 8.6 MG/DL (8.3-10.6); CHOLESTEROL RISK RATIO 2.09 (<5); CREATININE FOR GFR 0.72 MG/DL (0.55-1.30); GLOMERULAR FILTRATION RATE 89.9 (>39); LDL CHOLESTEROL 54.2 MG/DL (<100); POTASSIUM SERUM 4.1 MMOL/L (3.5-5.1); TOTAL PROTEIN 6.9 G/DL (5.7-8.2)
[2025-01-07 16:04] LABS: FREE T4 1.48 NG/DL (0.89-1.76); THYROID STIMULATING HORMONE 1.342 uIU/ML (0.55-4.78)
[2025-01-07 16:12] LABS: HEMOGLOBIN A1c 6.5 % (4.0-6.0)
== END ==
LOC: M SHH 15:05
PROVIDERS: ATTEND Registered Nurse
DX: E11.9 Type 2 diabetes mellitus without complications (principal); E03.9 Hypothyroidism, unspecified; J44.9 Chronic obstructive pulmonary disease, unspecified